=== PATIENT | male | born 1930 | race Caucasian/White ===

== ENCOUNTER 2018-08-03 21:23 | Inpatient (IN) | payer MEDICARE, OTHER ==
[~2018-08-03] VITALS: Ht 172.7 cm; Wt 86.6 kg
[2018-08-03 21:55] LABS: BASO # 0.1 x10^3/uL (0.0-0.2); BASO % 1 % (0-3); EOS # 0.2 x10^3/uL (0.0-0.7); EOS % 3 % (0-3); HEMATOCRIT 33.3 % (39.0-53.0); LYMPH # 3.2 x10^3/uL (1.0-4.8); LYMPH % 42 % (24-48); MEAN CORPUSCULAR HEMOGLOBIN 32 pg (25-35); MEAN CORPUSCULAR HGB CONC 33 g/dL (31-37); MEAN CORPUSCULAR VOLUME 97 fL (79-100); MONO # 0.6 x10^3/uL (0.0-1.1); MONO % 8 % (0-9); NEUT # 3.6 x10^3uL (1.8-7.7); NEUT % 47 % (31-73); PLATELET COUNT 265 x10^3/uL (140-400); RED BLOOD COUNT 3.44 x10^6/uL (4.30-5.70); RED CELL DISTRIBUTION WIDTH 13.7 % (11.5-14.5); WHITE BLOOD COUNT 7.7 x10^3/uL (4.0-11.0)
--- NOTE | 2018-08-03 22:00 | EKG ---
[address] [address] Test Date: 2018-08-03 Test Time: 21:57:56 Pat Name: LUCINDA CONTRERAS Department: Room: Gender: M Soil Engineer: : [id number] Requested By: JONAS CRAVEN Order Number: [id number] Reading MD: Chaz Garza MD Measurements Intervals [place] Rate: 52 P: -35 IA: 176 QRS: 1 QRSD: 80 T: 11 QT: 504 QTc: 471 Interpretive Statements SINUS RHYTHM Electronically Signed On 08-08-2018 8:22:13 EQUIPMENT MANAGER by Chaz Garza MD
[2018-08-03 22:08] LABS: CALCIUM 8.2 mg/dL (8.5-10.1); CREATININE 1.5 mg/dL (0.7-1.3); GFR 44.1; MAGNESIUM 2.4 mg/dL (1.8-2.4); POTASSIUM 3.8 mmol/L (3.5-5.1)
[2018-08-03 22:37] LABS: BILIRUBIN,URINE NEG (NEG); CLARITY,URINE CLEAR; COLOR,URINE YELLOW; GLUCOSE,URINE NEG (NEG)
[2018-08-03 22:38] LABS: BACTERIA,URINE 0 /HPF (0-FEW); NITRITE,URINE NEG (NEG); UROBILINOGEN,URINE 0.2 mg/dL (0.2 mg/dL)
[2018-08-03 22:39] LABS: HYALINE CASTS, URINE MANY /HPF
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
[2018-08-03 23:45] VITALS: BP 192/91
[2018-08-04] MEDS ORDERED: MAG HYDROX/AL HYDROX/SIMETH 30 ML ORAL.SUSP PO PRN
[2018-08-04] MEDS ORDERED: CLON0.1T PO (00:21)
[2018-08-04] MEDS ORDERED: MULT1TAB52 PO (00:21)
[2018-08-04] MEDS ORDERED: QUET50TA5 PO (00:21)
[2018-08-04] MEDS ORDERED: QUET25TA5 PO (00:21)
[2018-08-04] MEDS ORDERED: DIVA125C2 PO (00:21)
[2018-08-04] MEDS ORDERED: CHOL10003 PO (00:21)
[2018-08-04] MEDS ORDERED: BISA5TAB4 PO (00:21)
[2018-08-04] MEDS ORDERED: MEMA1CAP3 PO (00:21)
[2018-08-04] MEDS ORDERED: FURO40TA4 PO (00:21)
[2018-08-04] MEDS ORDERED: METO-239 PO (00:21)
[2018-08-04] MEDS ORDERED: LEVO50TA5 PO (00:21)
[2018-08-04] MEDS ORDERED: MELA3TAB2 PO (00:21)
[2018-08-04] MEDS ORDERED: ASPI81TA50 PO (00:21)
[2018-08-04] MEDS ORDERED: POLY17PO5 PO (00:21)
[2018-08-04] MEDS ORDERED: ACET325T9 PO (00:21)
[2018-08-04] MEDS ORDERED: QUET25TA PO (00:21)
[2018-08-04 00:43] LABS: ALBUMIN 2.9 g/dL (3.4-5.0); DIRECT BILIRUBIN 0.1 mg/dL (0.0-0.2); TOTAL BILIRUBIN 0.1 mg/dL (0.2-1.0); TOTAL PROTEIN 7.1 g/dL (6.4-8.2)
[2018-08-04] MEDS ORDERED: BISACODYL TAB 5 MG TABLET.DR. PO PRN (02:00)
[2018-08-04] MEDS ORDERED: ACETAMINOPHEN 325 MG TABLET PO PRN ×2 (02:00)
[2018-08-04] MEDS: LEVOTHYROXINE 50 MCG TABLET PO SCH (05:39)
[2018-08-04] MEDS ORDERED: NON FORMULARY ITEM (Memantine HCl/Donepezil HCl (Namzaric 28 mg-10 mg Capsule) 1 EACH) PO SCH (09:00)
[2018-08-04] MEDS: MULTIVITAMIN with MINERAL TABLET. PO SCH (10:07)
[2018-08-04] MEDS: POLYETHYLENE GLYCOL 3350 17 GM PACKET. PO SCH (10:07)
[2018-08-04] MEDS: ASPIRIN 81 MG TAB.CHEW PO SCH (10:08)
[2018-08-04] MEDS: QUEtiapine 25 MG TABLET. PO SCH ×2 (10:08→14:32)
[2018-08-04] MEDS: CHOLECALCIFEROL (VITAMIN D3) 1,000 UNIT TABLET PO SCH (10:08)
[2018-08-04] MEDS: METOPROLOL SUCC 24HR ER 25 MG TAB.ER.24H. PO SCH (10:08)
[2018-08-04] MEDS: DIVALPROEX 125 MG CAP.SPRINK PO SCH ×3 (10:08→21:01)
[2018-08-04] MEDS: cloNIDine HCL 0.2 MG TABLET PO SCH ×2 (10:09→21:15)
[2018-08-04] MEDS: FUROSEMIDE 40 MG TABLET PO SCH ×2 (10:09→14:32)
[2018-08-04 15:50] VITALS: BP 143/83
[2018-08-04] MEDS ORDERED: NON FORMULARY ITEM (Quetiapine Fumarate (Seroquel) 25 MG) PO SCH (21:00)
[2018-08-04] MEDS: DONEPEZIL HCL 10 MG TABLET PO SCH (21:01)
[2018-08-04] MEDS: MEMANTINE 10 MG TABLET. PO SCH (21:01)
[2018-08-04] MEDS: QUEtiapine 50 MG TABLET. PO SCH (21:02)
[2018-08-04] MEDS: MELATONIN 3 MG TABLET PO PRN (22:17)
--- NOTE | 2018-08-04 22:44 | PDOC ---
Exam Note: Marquis Note: Please also refer to the separate dictated note~for this date of service dictated separately.~Patient seen individually. Discussed the patient with Nursing staff reviewed the chart.~Reviewed interim history and current functioning. Reviewed vital signs,~Labs/ Radiology~and current medications noted below. Continue current treatment with the changes noted in the dictated addendum note Assessment: Vital Signs: Vital Signs Date Time Temp Pulse Resp B/P (MAP) Pulse Ox O2 Delivery O2 Flow Rate FiO2 08/04/18 21:15 61 186/73 08/04/18 15:50 97.6 18 99 Room Air I&O Intake and Output 08/04/18 07:00 Intake Total 0 ml Balance 0 ml Intake Oral 0 ml Current Medications: Meds: Current Medications Acetaminophen (Tylenol) 650 mg PRN Q6HRS PRN PO PAIN / TEMP; Start 08/04/18 at 00:00; Stop 08/04/18 at 09:05; Status DC Al Hydroxide/Mg Hydroxide (Mylanta Plus Xs) 15 ml PRN AFTMEALHC PRN PO DYSPEPSIA; Start 08/04/18 at 00:00 Magnesium Hydroxide (Milk Of Magnesia) 2,400 mg PRN QHS PRN PO CONSTIPATION; Start 08/04/18 at 00:00 Divalproex Sodium (Depakote Sprinkles) 250 mg TID PO Last administered on 08/04at 21:01; Start 08/04/18 at 09:00 Melatonin 3 mg PRN QHS PRN PO INSOMNIA Last administered on 08/04/18at 22:17; Start 08/04/18 at 02:00 Non-Formulary Medication (Memantine HCl/ Donepezil HCl (Namzaric 28 mg-10 mg Capsule)) 1 each DAILY PO ; Start 08/04/18 at 09:00; Stop 08/04/18 at 14:14; Status DC Quetiapine Fumarate (SEROquel) 25 mg BID@0900,1500 PO Last administered on at 14:32; Start 08/04/18 at 09:45 Non-Formulary Medication (Quetiapine Fumarate (Seroquel)) 25 mg QHS PO ; Start 08/04/18 at 21:00; Status UNV Quetiapine Fumarate (SEROquel) 75 mg QHS PO Last administered on 08/04/18 21: 02; Start 08/04/18 at 21:00 Acetaminophen (Tylenol) 650 mg PRN Q6HRS PRN PO PAIN / TEMP; Start 08/04/18 at 02:00 Bisacodyl (Dulcolax Tab) 10 mg PRN DAILY PRN PO CONSTIPATION; Start 08/04/18 at 02:00 Vitamin D (Vitamin D3) 1,000 unit DAILY PO Last administered on 08/04/18 10: 08; Start 08/04/18 at 09:00 Clonidine HCl (Catapres) 0.5 mg BID PO Last administered on 08/04/18 21:15; Start 08/04/18 at 09:00 Metoprolol Succinate (Toprol Xl) 25 mg DAILY PO Last administered on 10:08; Start 08/04/18 at 09:00 Aspirin (Children'S Aspirin) 81 mg DAILYWBKFT PO Last administered on 10:08; Start 08/04/18 at 08:00 Furosemide (Lasix) 40 mg BID94 PO Last administered on 08/04/18 14:32; Start 08/04/18 at 09:00 Levothyroxine Sodium (Synthroid) 50 mcg DAILY06 PO Last administered on 05:39; Start 08/04/18 at 06:00 Multivitamins/ Calcium (Thera-M Plus) 1 tab DAILY PO Last administered on 08/04 10:07; Start 08/04/18 at 09:00 Polyethylene Glycol (miraLAX) 17 gm DAILY PO Last administered on 08/04/18 10 :07; Start 08/04/18 at 09:00 Memantine (Namenda) 10 mg BID PO Last administered on 08/04/18 21:01; Start 08/04/18 at 21:00 Donepezil HCl (Aricept) 10 mg HS PO Last administered on 08/04/18 21:01; Start 08/04/18 at 21:00 Active Scripts Active Reported Vitamin D3 (Cholecalciferol (Vitamin D3)) 1,000 Unit Tablet 1,000 Unit PO DAILY Quetiapine Fumarate 25 Mg Tablet 25 Mg PO BID Seroquel (Quetiapine Fumarate) 50 Mg Tablet 50 Mg PO QHS Seroquel (Quetiapine Fumarate) 25 Mg Tablet 25 Mg PO QHS Namzaric 28 mg-10 mg Capsule (Memantine HCl/Donepezil HCl) 1 Each Cap.spr.24 1 Each PO DAILY Multivitamins (Multivitamin) 1 Each Tablet 1 Each PO DAILY Metoprolol Succinate ( Xl ) (Metoprolol Succinate) 25 Mg Tab.er.24h 25 Mg PO DAILY Melatonin 3 Mg Tablet 3 Mg PO PRN QHS PRN Levothyroxine Sodium 50 Mcg Tablet 50 Mcg PO DAILYAC Miralax (Polyethylene Glycol 3350) 17 Gm Powd.pack 17 Gm PO DAILY Furosemide 40 Mg Tablet 40 Mg PO BID Depakote Sprinkle (Divalproex Sodium) 125 Mg Cap.sprink 250 Mg PO TID Clonidine Hcl 0.1 Mg Tablet 0.5 Mg PO BID Bisacodyl 5 Mg Tablet.dr 10 Mg PO DAILY PRN Aspir-Low (Aspirin) 81 Mg Tablet.dr 81 Mg PO DAILY Tylenol (Acetaminophen) 325 Mg Tablet 650 Mg PO PRN Q6HRS PRN I have reviewed the current psychotropics carefully including drug interactions. Risk benefit ratio favors no change other than as noted in my dictated progress note. Diagnosis: Problems: (1) Encounter for medical screening examination (2) Anxiety disorder (3) Dementia, vascular, with depression (4) Dementia, vascular, with delusions (5) Dementia in Alzheimer's disease with depression (6) Dementia in Alzheimer's disease with delusions (7) Impulse control disorder ELSY SOTO MD Aug 04, 2018 22:44
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
[2018-08-05 06:23] VITALS: BP 156/81
[2018-08-05] MEDS: LEVOTHYROXINE 50 MCG TABLET PO SCH (06:23)
[2018-08-05] MEDS: ASPIRIN 81 MG TAB.CHEW PO SCH (08:55)
[2018-08-05] MEDS: CHOLECALCIFEROL (VITAMIN D3) 1,000 UNIT TABLET PO SCH (08:55)
[2018-08-05] MEDS: MULTIVITAMIN with MINERAL TABLET. PO SCH (08:55)
[2018-08-05] MEDS: QUEtiapine 25 MG TABLET. PO SCH ×2 (08:55→13:53)
[2018-08-05] MEDS: DIVALPROEX 125 MG CAP.SPRINK PO SCH ×3 (08:56→19:10)
[2018-08-05] MEDS: MEMANTINE 10 MG TABLET. PO SCH ×2 (08:56→19:08)
[2018-08-05] MEDS: FUROSEMIDE 40 MG TABLET PO SCH ×2 (08:56→15:50)
[2018-08-05] MEDS: POLYETHYLENE GLYCOL 3350 17 GM PACKET. PO SCH (08:56)
[2018-08-05 09:03] VITALS: BP 182/82
[2018-08-05] MEDS: METOPROLOL SUCC 24HR ER 25 MG TAB.ER.24H. PO SCH (09:04)
[2018-08-05] MEDS: cloNIDine HCL 0.2 MG TABLET PO SCH ×2 (09:05→19:10)
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
[2018-08-05 15:59] VITALS: BP 183/75
[2018-08-05 18:11] LABS: THYROXINE 5.8 ug/dL (4.5-12.0)
[2018-08-05] MEDS: QUEtiapine 50 MG TABLET. PO SCH (19:08)
[2018-08-05] MEDS: DONEPEZIL HCL 10 MG TABLET PO SCH (19:08)
[2018-08-05] MEDS: MIRTAZAPINE 7.5 MG TABLET. PO SCH (19:49)
[2018-08-05] MEDS: MELATONIN 3 MG TABLET PO PRN (20:09)
--- NOTE | 2018-08-05 22:33 | PDOC ---
Exam Note: Marquis Note: Please also refer to the separate dictated note~for this date of service dictated separately.~Patient seen individually. Discussed the patient with Nursing staff reviewed the chart.~Reviewed interim history and current functioning. Reviewed vital signs,~Labs/ Radiology~and current medications noted below. Continue current treatment with the changes noted in the dictated addendum note Assessment: Vital Signs: Vital Signs Date Time Temp Pulse Resp B/P (MAP) Pulse Ox O2 Delivery O2 Flow Rate FiO2 08/05/18 19:10 54 183/75 08/05/18 15:59 97.1 16 99 Room Air I&O Intake and Output 08/05/18 07:00 Intake Total 560 ml Balance 560 ml Intake Oral 560 ml # Voids 1 Labs: Laboratory Tests Test 08/05/18 09:17 Free Thyroxine 0.87 ng/dL (0.76-1.46) Thyroxine (T4) 5.8 ug/dL (4.5-12.0) Total Triiodothyronine (TT3) 72 ng/dL (71-180) Current Medications: Meds: Current Medications Acetaminophen (Tylenol) 650 mg PRN Q6HRS PRN PO PAIN / TEMP; Start 08/04/18 at 00:00; Stop 08/04/18 at 09:05; Status DC Al Hydroxide/Mg Hydroxide (Mylanta Plus Xs) 15 ml PRN AFTMEALHC PRN PO DYSPEPSIA; Start 08/04/18 at 00:00 Magnesium Hydroxide (Milk Of Magnesia) 2,400 mg PRN QHS PRN PO CONSTIPATION; Start 08/04/18 at 00:00 Divalproex Sodium (Depakote Sprinkles) 250 mg TID PO Last administered on 08/05at 19:10; Start 08/04/18 at 09:00 Melatonin 3 mg PRN QHS PRN PO INSOMNIA Last administered on 08/05/18at 20:09; Start 08/04/18 at 02:00 Non-Formulary Medication (Memantine HCl/ Donepezil HCl (Namzaric 28 mg-10 mg Capsule)) 1 each DAILY PO ; Start 08/04/18 at 09:00; Stop 08/04/18 at 14:14; Status DC Quetiapine Fumarate (SEROquel) 25 mg BID@0900,1500 PO Last administered on 13:53; Start 08/04/18 at 09:45 Non-Formulary Medication (Quetiapine Fumarate (Seroquel)) 25 mg QHS PO ; Start 08/04/18 at 21:00; Status UNV Quetiapine Fumarate (SEROquel) 75 mg QHS PO Last administered on 08/05/18 19: 08; Start 08/04/18 at 21:00 Acetaminophen (Tylenol) 650 mg PRN Q6HRS PRN PO PAIN / TEMP; Start 08/04/18 at 02:00 Bisacodyl (Dulcolax Tab) 10 mg PRN DAILY PRN PO CONSTIPATION; Start 08/04/18 at 02:00 Vitamin D (Vitamin D3) 1,000 unit DAILY PO Last administered on 08/05/18 08: 55; Start 08/04/18 at 09:00 Clonidine HCl (Catapres) 0.5 mg BID PO Last administered on 08/05/18 19:10; Start 08/04/18 at 09:00 Metoprolol Succinate (Toprol Xl) 25 mg DAILY PO Last administered on 09:04; Start 08/04/18 at 09:00 Aspirin (Children'S Aspirin) 81 mg DAILYWBKFT PO Last administered on 08:55; Start 08/04/18 at 08:00 Furosemide (Lasix) 40 mg BID94 PO Last administered on 08/05/18 15:50; Start 08/04/18 at 09:00 Levothyroxine Sodium (Synthroid) 50 mcg DAILY06 PO Last administered on 06:23; Start 08/04/18 at 06:00 Multivitamins/ Calcium (Thera-M Plus) 1 tab DAILY PO Last administered on 08/05 08:55; Start 08/04/18 at 09:00 Polyethylene Glycol (miraLAX) 17 gm DAILY PO Last administered on 08/05/18 08 :56; Start 08/04/18 at 09:00 Memantine (Namenda) 10 mg BID PO Last administered on 08/05/18 19:08; Start 08/04/18 at 21:00 Donepezil HCl (Aricept) 10 mg HS PO Last administered on 11/30/18at 19:08; Start 08/04/18 at 21:00 Sertraline HCl (Zoloft) 25 mg DAILY PO ; Start 08/06/18 at 09:00 Donepezil HCl (Aricept) 10 mg DAILY PO ; Start 08/06/18 at 09:00 Mirtazapine (Remeron) 7.5 mg QHS PO Last administered on 08/05/18at 19:49; Start 08/05/18 at 21:00 Active Scripts Active Reported Vitamin D3 (Cholecalciferol (Vitamin D3)) 1,000 Unit Tablet 1,000 Unit PO DAILY Quetiapine Fumarate 25 Mg Tablet 25 Mg PO BID Seroquel (Quetiapine Fumarate) 50 Mg Tablet 50 Mg PO QHS Seroquel (Quetiapine Fumarate) 25 Mg Tablet 25 Mg PO QHS Namzaric 28 mg-10 mg Capsule (Memantine HCl/Donepezil HCl) 1 Each Cap.spr.24 1 Each PO DAILY Multivitamins (Multivitamin) 1 Each Tablet 1 Each PO DAILY Metoprolol Succinate ( Xl ) (Metoprolol Succinate) 25 Mg Tab.er.24h 25 Mg PO DAILY Melatonin 3 Mg Tablet 3 Mg PO PRN QHS PRN Levothyroxine Sodium 50 Mcg Tablet 50 Mcg PO DAILYAC Miralax (Polyethylene Glycol 3350) 17 Gm Powd.pack 17 Gm PO DAILY Furosemide 40 Mg Tablet 40 Mg PO BID Depakote Sprinkle (Divalproex Sodium) 125 Mg Cap.sprink 250 Mg PO TID Clonidine Hcl 0.1 Mg Tablet 0.5 Mg PO BID Bisacodyl 5 Mg Tablet. 10 Mg PO DAILY PRN Aspir-Low (Aspirin) 81 Mg Tablet. 81 Mg PO DAILY Tylenol (Acetaminophen) 325 Mg Tablet 650 Mg PO PRN Q6HRS PRN I have reviewed the current psychotropics carefully including drug interactions. Risk benefit ratio favors no change other than as noted in my dictated progress note. Diagnosis: Problems: (1) Encounter for medical screening examination (2) Anxiety disorder (3) Dementia, vascular, with depression (4) Dementia, vascular, with delusions (5) Dementia in Alzheimer's disease with depression (6) Dementia in Alzheimer's disease with delusions (7) Impulse control disorder ELSY SOTO MD Aug 05, 2018 22:33
[2018-08-06 02:08] LABS: HEMOGLOBIN A1C 5.6 % (4.8-5.6)
[2018-08-06 05:59] VITALS: BP 130/92
[2018-08-06] MEDS: LEVOTHYROXINE 50 MCG TABLET PO SCH (06:00)
[2018-08-06] MEDS: ASPIRIN 81 MG TAB.CHEW PO SCH (08:30)
[2018-08-06] MEDS: DONEPEZIL HCL 10 MG TABLET PO SCH (08:32)
[2018-08-06] MEDS: DIVALPROEX 125 MG CAP.SPRINK PO SCH ×3 (08:33→19:03)
[2018-08-06] MEDS: cloNIDine HCL 0.2 MG TABLET PO SCH ×2 (08:33→19:03)
[2018-08-06] MEDS: POLYETHYLENE GLYCOL 3350 17 GM PACKET. PO SCH (08:33)
[2018-08-06] MEDS: MULTIVITAMIN with MINERAL TABLET. PO SCH (08:33)
[2018-08-06] MEDS: QUEtiapine 25 MG TABLET. PO SCH ×2 (08:33→14:59)
[2018-08-06] MEDS: MEMANTINE 10 MG TABLET. PO SCH ×2 (08:33→19:02)
[2018-08-06] MEDS: FUROSEMIDE 40 MG TABLET PO SCH ×2 (08:33→14:59)
[2018-08-06] MEDS: CHOLECALCIFEROL (VITAMIN D3) 1,000 UNIT TABLET PO SCH (08:34)
[2018-08-06] MEDS: SERTRALINE 25 MG TABLET. PO SCH (08:34)
[2018-08-06] MEDS: METOPROLOL SUCC 24HR ER 25 MG TAB.ER.24H. PO SCH (08:34)
[2018-08-06 09:22] LABS: VAL ACID 53 mcg/mL (50-100)
[2018-08-06 15:51] VITALS: BP 139/78
[2018-08-06] MEDS: MIRTAZAPINE 7.5 MG TABLET. PO SCH (19:02)
[2018-08-06] MEDS: QUEtiapine 50 MG TABLET. PO SCH (19:02)
[2018-08-06] MEDS: traZODone 50 MG TABLET. PO SCH (19:08)
--- NOTE | 2018-08-06 21:44 | PDOC ---
Exam Note: Marquis Note: Please also refer to the separate dictated note~for this date of service dictated separately.~Patient seen individually. Discussed the patient with Nursing staff reviewed the chart.~Reviewed interim history and current functioning. Reviewed vital signs,~Labs/ Radiology~and current medications noted below. Continue current treatment with the changes noted in the dictated addendum note Assessment: Vital Signs: Vital Signs Date Time Temp Pulse Resp B/P (MAP) Pulse Ox O2 Delivery O2 Flow Rate FiO2 08/06/18 19:03 52 139/78 08/06/18 15:51 97.4 18 96 Room Air I&O Intake and Output 08/06/18 07:00 Intake Total 1080 ml Balance 1080 ml Intake Oral 1080 ml # Voids 2 Labs: Laboratory Tests Test 08/06/18 08:44 Valproic Acid Level 53 mcg/mL (50-100) Valproic Acid Last Dose Date 08/05/2018 Valproic Acid Last Dose Time 2100 Current Medications: Meds: Current Medications Acetaminophen (Tylenol) 650 mg PRN Q6HRS PRN PO PAIN / TEMP; Start 08/04/18 at 00:00; Stop 08/04/18 at 09:05; Status DC Al Hydroxide/Mg Hydroxide (Mylanta Plus Xs) 15 ml PRN AFTMEALHC PRN PO DYSPEPSIA; Start 08/04/18 at 00:00 Magnesium Hydroxide (Milk Of Magnesia) 2,400 mg PRN QHS PRN PO CONSTIPATION; Start 08/04/18 at 00:00 Divalproex Sodium (Depakote Sprinkles) 250 mg TID PO Last administered on at 19:03; Start 08/04/18 at 09:00 Melatonin 3 mg PRN QHS PRN PO INSOMNIA Last administered on 08/05/18at 20:09; Start 08/04/18 at 02:00 Non-Formulary Medication (Memantine HCl/ Donepezil HCl (Namzaric 28 mg-10 mg Capsule)) 1 each DAILY PO ; Start 08/04/18 at 09:00; Stop 08/04/18 at 14:14; Status DC Quetiapine Fumarate (SEROquel) 25 mg BID@0900,1500 PO Last administered on 08/06at 14:59; Start 08/04/18 at 09:45 Non-Formulary Medication (Quetiapine Fumarate (Seroquel)) 25 mg QHS PO ; Start 08/04/18 at 21:00; Status UNV Quetiapine Fumarate (SEROquel) 75 mg QHS PO Last administered on 08/06/18 19: 02; Start 08/04/18 at 21:00 Acetaminophen (Tylenol) 650 mg PRN Q6HRS PRN PO PAIN / TEMP; Start 08/04/18 at 02:00 Bisacodyl (Dulcolax Tab) 10 mg PRN DAILY PRN PO CONSTIPATION; Start 08/04/18 at 02:00 Vitamin D (Vitamin D3) 1,000 unit DAILY PO Last administered on 08/06/18 08:34 ; Start 08/04/18 at 09:00 Clonidine HCl (Catapres) 0.5 mg BID PO Last administered on 08/06/18 19:03; Start 08/04/18 at 09:00 Metoprolol Succinate (Toprol Xl) 25 mg DAILY PO Last administered on 08/06/18 08:34; Start 08/04/18 at 09:00 Aspirin (Children'S Aspirin) 81 mg DAILYWBKFT PO Last administered on 08:30; Start 08/04/18 at 08:00 Furosemide (Lasix) 40 mg BID94 PO Last administered on 08/06/18at 14:59; Start 08/04/18 at 09:00 Levothyroxine Sodium (Synthroid) 50 mcg DAILY06 PO Last administered on 06:00; Start 08/04/18 at 06:00 Multivitamins/ Calcium (Thera-M Plus) 1 tab DAILY PO Last administered on 08:33; Start 08/04/18 at 09:00 Polyethylene Glycol (miraLAX) 17 gm DAILY PO Last administered on 08/06/18 08: 33; Start 08/04/18 at 09:00 Memantine (Namenda) 10 mg BID PO Last administered on 08/06/18 19:02; Start 08/04/18 at 21:00 Donepezil HCl (Aricept) 10 mg HS PO Last administered on 08/05/18 19:08; Start 08/04/18 at 21:00; Stop 08/06/18 at 18:50; Status DC Sertraline HCl (Zoloft) 25 mg DAILY PO Last administered on 08/06/18at 08:34; Start 08/06/18 at 09:00 Donepezil HCl (Aricept) 10 mg DAILY PO Last administered on 08/06/18at 08:32; Start 08/06/18 at 09:00 Mirtazapine (Remeron) 7.5 mg QHS PO Last administered on 08/06/18at 19:02; Start 08/05/18 at 21:00 Olanzapine (ZyPREXA ZYDIS) 2.5 mg PRN Q2HR PRN PO PSYCHOSIS Last administered on 08/06/18at 19:09; Start 08/06/18 at 06:45 Trazodone HCl (Desyrel) 50 mg QHS PO Last administered on 08/06/18at 19:08; Start 08/06/18 at 21:00 Trazodone HCl (Desyrel) 50 mg PRN QHS PRN PO INSOMNIA; Start 08/06/18 at 19:00 Active Scripts Active Reported Vitamin D3 (Cholecalciferol (Vitamin D3)) 1,000 Unit Tablet 1,000 Unit PO DAILY Quetiapine Fumarate 25 Mg Tablet 25 Mg PO BID Seroquel (Quetiapine Fumarate) 50 Mg Tablet 50 Mg PO QHS Seroquel (Quetiapine Fumarate) 25 Mg Tablet 25 Mg PO QHS Namzaric 28 mg-10 mg Capsule (Memantine HCl/Donepezil HCl) 1 Each Cap.spr.24 1 Each PO DAILY Multivitamins (Multivitamin) 1 Each Tablet 1 Each PO DAILY Metoprolol Succinate ( Xl ) (Metoprolol Succinate) 25 Mg Tab.er.24h 25 Mg PO DAILY Melatonin 3 Mg Tablet 3 Mg PO PRN QHS PRN Levothyroxine Sodium 50 Mcg Tablet 50 Mcg PO DAILYAC Miralax (Polyethylene Glycol 3350) 17 Gm Powd.pack 17 Gm PO DAILY Furosemide 40 Mg Tablet 40 Mg PO BID Depakote Sprinkle (Divalproex Sodium) 125 Mg Cap.sprink 250 Mg PO TID Clonidine Hcl 0.1 Mg Tablet 0.5 Mg PO BID Bisacodyl 5 Mg Tablet.dr 10 Mg PO DAILY PRN Aspir-Low (Aspirin) 81 Mg Tablet.dr 81 Mg PO DAILY Tylenol (Acetaminophen) 325 Mg Tablet 650 Mg PO PRN Q6HRS PRN I have reviewed the current psychotropics carefully including drug interactions. Risk benefit ratio favors no change other than as noted in my dictated progress note. Diagnosis: Problems: (1) Encounter for medical screening examination (2) Anxiety disorder (3) Dementia, vascular, with depression (4) Dementia, vascular, with delusions (5) Dementia in Alzheimer's disease with depression (6) Dementia in Alzheimer's disease with delusions (7) Impulse control disorder ELSY SOTO MD Aug 06, 2018 21:44
[2018-08-07] MEDS: MELATONIN 3 MG TABLET PO PRN (01:52)
[2018-08-07] MEDS: traZODone 50 MG TABLET. PO PRN (01:52)
[2018-08-07] MEDS: LEVOTHYROXINE 50 MCG TABLET PO SCH (05:13)
[2018-08-07 05:50] VITALS: BP 159/70
[2018-08-07] MEDS: ASPIRIN 81 MG TAB.CHEW PO SCH (08:36)
[2018-08-07] MEDS: DONEPEZIL HCL 10 MG TABLET PO SCH (08:36)
[2018-08-07] MEDS: cloNIDine HCL 0.2 MG TABLET PO SCH ×2 (08:38→19:47)
[2018-08-07] MEDS: QUEtiapine 25 MG TABLET. PO SCH ×2 (08:38→15:04)
[2018-08-07] MEDS: DIVALPROEX 125 MG CAP.SPRINK PO SCH ×3 (08:38→19:48)
[2018-08-07] MEDS: FUROSEMIDE 40 MG TABLET PO SCH ×2 (08:38→15:03)
[2018-08-07] MEDS: POLYETHYLENE GLYCOL 3350 17 GM PACKET. PO SCH (08:38)
[2018-08-07] MEDS: MEMANTINE 10 MG TABLET. PO SCH ×2 (08:38→19:47)
[2018-08-07] MEDS: METOPROLOL SUCC 24HR ER 25 MG TAB.ER.24H. PO SCH (08:39)
[2018-08-07] MEDS: CHOLECALCIFEROL (VITAMIN D3) 1,000 UNIT TABLET PO SCH (08:39)
[2018-08-07] MEDS: MULTIVITAMIN with MINERAL TABLET. PO SCH (08:39)
[2018-08-07] MEDS: SERTRALINE 25 MG TABLET. PO SCH (08:40)
[2018-08-07 15:47] VITALS: BP 138/79
[2018-08-07] MEDS: traZODone 50 MG TABLET. PO SCH (19:48)
[2018-08-07] MEDS: QUEtiapine 50 MG TABLET. PO SCH (19:49)
[2018-08-07] MEDS: MIRTAZAPINE 15 MG TABLET PO SCH (19:50)
--- NOTE | 2018-08-07 22:04 | PN ---
DATE: 08/05/2018 This is a late entry for date of service 08/05/2018 and covers elements not covered in my initial note. SUBJECTIVE: I met with the patient in the evening. The patient slept 4-3/4 hours previous evening. He is oriented just to himself. A little more cooperative, but towards the evening, he was looking for his and getting more agitated. REVIEW OF SYSTEMS: No CV, , pulmonary, eye, ENT system symptoms on review. Reliability poor. MENTAL STATUS EXAM: Oriented to himself. Insight, judgment, recent and remote memory, attention, concentration, fund of knowledge poor, consistent with his diagnosis. IMPRESSION: Major neurocognitive disorder, Alzheimer, vascular with delusion, depression, behavioral disturbance; anxiety disorder, unspecified; impulse control disorder, unspecified. PLAN: Maintain Aricept 10 mg a day, Namenda 10 mg twice a day, Depakote Sprinkles 250 mg 3 times a day, Seroquel 25 mg b.i.d. and 75 mg at bedtime, melatonin p.r.n. Start Zoloft 25 mg a day, Remeron 7.5 mg p.o. at bedtime. Make further adjustments as clinically indicated. MAN Jean SOTO MD DR: GABRIEL/joe JOB#: [id number] / [id number]
--- NOTE | 2018-08-07 22:41 | PN ---
DATE: 08/06/2018 This is a late entry for 08/06/2018 covers elements not covered in my initial note. SUBJECTIVE: I met with the patient in the evening. The patient slept 4-1/2 hours previous night. In the morning, the patient was cursing, had to be placed in the [place] [facility], extremely agitated, disruptive, psychotic, confused. He wanted another female patient to sit in his lap and when this did not happen, he was extremely agitated, aggressive. REVIEW OF SYSTEMS: No CV, , pulmonary, eye, ENT system symptoms on review. Reliability poor. MENTAL STATUS EXAM: Oriented to himself. Insight, judgment, recent and remote memory, attention, concentration, fund of knowledge poor, consistent with his diagnosis. IMPRESSION: Major neurocognitive disorder, Alzheimer, vascular with delusion, depression, behavioral disturbance; anxiety disorder, unspecified; impulse control disorder, unspecified. PLAN: Change Aricept to 10 mg a day. Maintain Remeron 7.5 mg at bedtime, Zyprexa p.r.n., Namenda 10 b.i.d., Seroquel 25 mg b.i.d., 75 at bedtime, Depakote Sprinkles 250 t.i.d., melatonin 3 mg at bedtime p.r.n. Start trazodone 50 mg at bedtime. January repeat x 1 p.r.n. insomnia. MAN Jean SOTO MD DR: GABRIEL/joe JOB#: [id number] / [id number]
[2018-08-08] MEDS: LEVOTHYROXINE 50 MCG TABLET PO SCH (05:26)
[2018-08-08 05:50] VITALS: BP 179/74
[2018-08-08] MEDS: cloNIDine HCL 0.2 MG TABLET PO SCH ×2 (08:08→19:24)
[2018-08-08] MEDS: ASPIRIN 81 MG TAB.CHEW PO SCH (08:08)
[2018-08-08] MEDS: DONEPEZIL HCL 10 MG TABLET PO SCH (08:08)
[2018-08-08] MEDS: QUEtiapine 25 MG TABLET. PO SCH ×2 (08:09→15:04)
[2018-08-08] MEDS: DIVALPROEX 125 MG CAP.SPRINK PO SCH ×3 (08:09→19:23)
[2018-08-08] MEDS: FUROSEMIDE 40 MG TABLET PO SCH ×2 (08:09→15:04)
[2018-08-08] MEDS: MULTIVITAMIN with MINERAL TABLET. PO SCH (08:09)
[2018-08-08] MEDS: POLYETHYLENE GLYCOL 3350 17 GM PACKET. PO SCH (08:09)
[2018-08-08] MEDS: MEMANTINE 10 MG TABLET. PO SCH ×2 (08:09→19:25)
[2018-08-08] MEDS: CHOLECALCIFEROL (VITAMIN D3) 1,000 UNIT TABLET PO SCH (08:10)
[2018-08-08] MEDS: METOPROLOL SUCC 24HR ER 25 MG TAB.ER.24H. PO SCH (08:10)
[2018-08-08] MEDS: SERTRALINE 50 MG TABLET. PO SCH (08:11)
--- NOTE | 2018-08-08 10:08 | PDOC ---
Exam Note: Marquis Note: Late entry for DOS 08/07/2018. Please also refer to the separate dictated note~ for this date of service dictated separately.~Patient seen individually. Discussed the patient with Nursing staff reviewed the chart.~Reviewed interim history and current functioning. Reviewed vital signs,~Labs/ Radiology~and current medications noted below. Continue current treatment with the changes noted in the dictated addendum note Assessment: Vital Signs: VS - Last 72 Hours, by Label Date Time Temp Pulse Resp B/P (MAP) Pulse Ox O2 Delivery O2 Flow Rate FiO2 08/08/18 08:10 66 179/74 08/08/18 08:08 62 109/75 08/08/18 05:50 96.2 66 20 179/74 (109) 99 08/07/18 19:47 62 138/79 08/07/18 15:47 97.7 62 18 138/79 (98) 97 08/07/18 08:39 67 159/70 08/07/18 08:38 67 159/70 08/07/18 05:50 97.8 67 18 159/70 (99) 98 08/06/18 19:03 52 139/78 08/06/18 15:51 97.4 52 18 139/78 (98) 96 Room Air 08/06/18 08:34 68 130/92 08/06/18 08:33 68 130/92 08/06/18 05:59 97.2 68 18 130/92 (105) 98 08/05/18 19:10 54 183/75 08/05/18 15:59 97.1 54 16 183/75 (111) 99 Room Air Vital Signs Date Time Temp Pulse Resp B/P (MAP) Pulse Ox O2 Delivery O2 Flow Rate FiO2 08/08/18 08:10 66 179/74 08/08/18 05:50 96.2 20 99 08/06/18 15:51 Room Air I&O Intake and Output 08/08/18 07:00 Intake Total 1200 ml Balance 1200 ml Intake Oral 1200 ml Current Medications: Meds: Current Medications Acetaminophen (Tylenol) 650 mg PRN Q6HRS PRN PO PAIN / TEMP; Start 08/04/18 at 00:00; Stop 08/04/18 at 09:05; Status DC Al Hydroxide/Mg Hydroxide (Mylanta Plus Xs) 15 ml PRN AFTMEALHC PRN PO DYSPEPSIA; Start 08/04/18 at 00:00 Magnesium Hydroxide (Milk Of Magnesia) 2,400 mg PRN QHS PRN PO CONSTIPATION; Start 08/04/18 at 00:00 Divalproex Sodium (Depakote Sprinkles) 250 mg TID PO Last administered on 08:09; Start 08/04/18 at 09:00 Melatonin 3 mg PRN QHS PRN PO INSOMNIA Last administered on 08/07/18at 01:52; Start 08/04/18 at 02:00 Non-Formulary Medication (Memantine HCl/ Donepezil HCl (Namzaric 28 mg-10 mg Capsule)) 1 each DAILY PO ; Start 08/04/18 at 09:00; Stop 08/04/18 at 14:14; Status DC Quetiapine Fumarate (SEROquel) 25 mg BID@0900,1500 PO Last administered on 08/08 08:09; Start 08/04/18 at 09:45 Non-Formulary Medication (Quetiapine Fumarate (Seroquel)) 25 mg QHS PO ; Start 08/04/18 at 21:00; Status UNV Quetiapine Fumarate (SEROquel) 75 mg QHS PO Last administered on 08/07/18 19: 49; Start 08/04/18 at 21:00 Acetaminophen (Tylenol) 650 mg PRN Q6HRS PRN PO PAIN / TEMP; Start 08/04/18 at 02:00 Bisacodyl (Dulcolax Tab) 10 mg PRN DAILY PRN PO CONSTIPATION; Start 08/04/18 at 02:00 Vitamin D (Vitamin D3) 1,000 unit DAILY PO Last administered on 08/08/18 08:10 ; Start 08/04/18 at 09:00 Clonidine HCl (Catapres) 0.5 mg BID PO Last administered on 08/08/18 08:08; Start 08/04/18 at 09:00 Metoprolol Succinate (Toprol Xl) 25 mg DAILY PO Last administered on 08/08/18 08:10; Start 08/04/18 at 09:00 Aspirin (Children'S Aspirin) 81 mg DAILYWBKFT PO Last administered on 08:08; Start 08/04/18 at 08:00 Furosemide (Lasix) 40 mg BID94 PO Last administered on 08/08/18 08:09; Start 08/04/18 at 09:00 Levothyroxine Sodium (Synthroid) 50 mcg DAILY06 PO Last administered on 05:26; Start 08/04/18 at 06:00 Multivitamins/ Calcium (Thera-M Plus) 1 tab DAILY PO Last administered on 08:09; Start 08/04/18 at 09:00 Polyethylene Glycol (miraLAX) 17 gm DAILY PO Last administered on 08/08/18 08: 09; Start 08/04/18 at 09:00 Memantine (Namenda) 10 mg BID PO Last administered on 08/08/18 08:09; Start 08/04/18 at 21:00 Donepezil HCl (Aricept) 10 mg HS PO Last administered on 08/05/18at 19:08; Start 08/04/18 at 21:00; Stop 08/06/18 at 18:50; Status DC Sertraline HCl (Zoloft) 25 mg DAILY PO Last administered on 08/07/18 08:40; Start 08/06/18 at 09:00; Stop 08/07/18 at 18:41; Status DC Donepezil HCl (Aricept) 10 mg DAILY PO Last administered on 08/08/18 08:08; Start 08/06/18 at 09:00 Mirtazapine (Remeron) 7.5 mg QHS PO Last administered on 08/06/18 19:02; Start 08/05/18 at 21:00; Stop 08/07/18 at 18:41; Status DC Olanzapine (ZyPREXA ZYDIS) 2.5 mg PRN Q2HR PRN PO PSYCHOSIS Last administered on 08/06/18 19:09; Start 08/06/18 at 06:45 Trazodone HCl (Desyrel) 50 mg QHS PO Last administered on 08/07/18 19:48; Start 08/06/18 at 21:00 Trazodone HCl (Desyrel) 50 mg PRN QHS PRN PO INSOMNIA Last administered on 08/07 01:52; Start 08/06/18 at 19:00 Mirtazapine (Remeron) 15 mg QHS PO Last administered on 08/07/18at 19:50; Start 08/07/18 at 21:00 Sertraline HCl (Zoloft) 50 mg DAILY PO Last administered on 08/08/18at 08:11; Start 08/08/18 at 09:00 Active Scripts Active Reported Vitamin D3 (Cholecalciferol (Vitamin D3)) 1,000 Unit Tablet 1,000 Unit PO DAILY Quetiapine Fumarate 25 Mg Tablet 25 Mg PO BID Seroquel (Quetiapine Fumarate) 50 Mg Tablet 50 Mg PO QHS Seroquel (Quetiapine Fumarate) 25 Mg Tablet 25 Mg PO QHS Namzaric 28 mg-10 mg Capsule (Memantine HCl/Donepezil HCl) 1 Each Cap.spr.24 1 Each PO DAILY Multivitamins (Multivitamin) 1 Each Tablet 1 Each PO DAILY Metoprolol Succinate ( Xl ) (Metoprolol Succinate) 25 Mg Tab.er.24h 25 Mg PO DAILY Melatonin 3 Mg Tablet 3 Mg PO PRN QHS PRN Levothyroxine Sodium 50 Mcg Tablet 50 Mcg PO DAILYAC Miralax (Polyethylene Glycol 3350) 17 Gm Powd.pack 17 Gm PO DAILY Furosemide 40 Mg Tablet 40 Mg PO BID Depakote Sprinkle (Divalproex Sodium) 125 Mg Cap.sprink 250 Mg PO TID Clonidine Hcl 0.1 Mg Tablet 0.5 Mg PO BID Bisacodyl 5 Mg Tablet.dr 10 Mg PO DAILY PRN Aspir-Low (Aspirin) 81 Mg Tablet.dr 81 Mg PO DAILY Tylenol (Acetaminophen) 325 Mg Tablet 650 Mg PO PRN Q6HRS PRN I have reviewed the current psychotropics carefully including drug interactions. Risk benefit ratio favors no change other than as noted in my dictated progress note. Diagnosis: Problems: (1) Encounter for medical screening examination (2) Anxiety disorder (3) Dementia, vascular, with depression (4) Dementia, vascular, with delusions (5) Dementia in Alzheimer's disease with depression (6) Dementia in Alzheimer's disease with delusions (7) Impulse control disorder ELSY SOTO MD Aug 08, 2018 10:08
[2018-08-08 16:09] VITALS: BP 175/83
[2018-08-08] MEDS: MIRTAZAPINE 15 MG TABLET PO SCH (19:25)
[2018-08-08] MEDS: traZODone 50 MG TABLET. PO SCH (19:25)
[2018-08-08] MEDS: QUEtiapine 50 MG TABLET. PO SCH (19:26)
[2018-08-08] MEDS: MELATONIN 3 MG TABLET PO PRN (19:38)
[2018-08-08] MEDS: traZODone 50 MG TABLET. PO PRN (20:54)
--- NOTE | 2018-08-08 21:36 | PN ---
DATE: 08/07/2018 PSYCHIATRIC PROGRESS NOTE This late entry 08/07/2018, covers elements not covered in my initial note. SUBJECTIVE: I met with the patient in the evening. The patient slept 5-1/2 hours previous night. Previous evening, he was spitting out his medications, agitated, received trazodone and melatonin at 1:30 a.m. He is confused, believes his parents were here and "dad will take care of." REVIEW OF SYSTEMS: No CV, , pulmonary, eye, ENT system symptoms on review. Reliability poor. MENTAL STATUS EXAM: Oriented to himself. Insight, judgment, recent and remote memory, attention, concentration, fund of knowledge poor, consistent with his diagnosis mentioned in my initial note. IMPRESSION: Major neurocognitive disorder, Alzheimer, vascular with delusion, depression, behavioral disturbance; anxiety disorder, unspecified; impulse control disorder, unspecified. PLAN: Increase Zoloft from 25 to 50 mg a day, Remeron from 7.5 mg to 15 mg at bedtime. Rest unchanged from initial note. MAN Jean SOTO MD DR: GABRIEL/joe JOB#: [id number] / [id number]
--- NOTE | 2018-08-08 22:43 | PDOC ---
Exam Note: Marquis Note: Please also refer to the separate dictated note~for this date of service dictated separately.~Patient seen individually. Discussed the patient with Nursing staff reviewed the chart.~Reviewed interim history and current functioning. Reviewed vital signs,~Labs/ Radiology~and current medications noted below. Continue current treatment with the changes noted in the dictated addendum note Assessment: Vital Signs: Vital Signs Date Time Temp Pulse Resp B/P (MAP) Pulse Ox O2 Delivery O2 Flow Rate FiO2 08/08/18 19:24 82 175/83 08/08/18 16:09 97.3 18 98 08/06/18 15:51 Room Air I&O Intake and Output 08/08/18 07:00 Intake Total 1200 ml Balance 1200 ml Intake Oral 1200 ml Current Medications: Meds: Current Medications Acetaminophen (Tylenol) 650 mg PRN Q6HRS PRN PO PAIN / TEMP; Start 08/04/18 at 00:00; Stop 08/04/18 at 09:05; Status DC Al Hydroxide/Mg Hydroxide (Mylanta Plus Xs) 15 ml PRN AFTMEALHC PRN PO DYSPEPSIA; Start 08/04/18 at 00:00 Magnesium Hydroxide (Milk Of Magnesia) 2,400 mg PRN QHS PRN PO CONSTIPATION; Start 08/04/18 at 00:00 Divalproex Sodium (Depakote Sprinkles) 250 mg TID PO Last administered on at 19:23; Start 08/04/18 at 09:00 Melatonin 3 mg PRN QHS PRN PO INSOMNIA Last administered on 08/08/18at 19:38; Start 08/04/18 at 02:00 Non-Formulary Medication (Memantine HCl/ Donepezil HCl (Namzaric 28 mg-10 mg Capsule)) 1 each DAILY PO ; Start 08/04/18 at 09:00; Stop 08/04/18 at 14:14; Status DC Quetiapine Fumarate (SEROquel) 25 mg BID@0900,1500 PO Last administered on 08/08at 15:04; Start 08/04/18 at 09:45 Non-Formulary Medication (Quetiapine Fumarate (Seroquel)) 25 mg QHS PO ; Start 08/04/18 at 21:00; Status UNV Quetiapine Fumarate (SEROquel) 75 mg QHS PO Last administered on 08/08/18 19: 26; Start 08/04/18 at 21:00 Acetaminophen (Tylenol) 650 mg PRN Q6HRS PRN PO PAIN / TEMP; Start 08/04/18 at 02:00 Bisacodyl (Dulcolax Tab) 10 mg PRN DAILY PRN PO CONSTIPATION; Start 08/04/18 at 02:00 Vitamin D (Vitamin D3) 1,000 unit DAILY PO Last administered on 08/08/18 08:10 ; Start 08/04/18 at 09:00 Clonidine HCl (Catapres) 0.5 mg BID PO Last administered on 08/08/18 19:24; Start 08/04/18 at 09:00 Metoprolol Succinate (Toprol Xl) 25 mg DAILY PO Last administered on 08/08/18 08:10; Start 08/04/18 at 09:00 Aspirin (Children'S Aspirin) 81 mg DAILYWBKFT PO Last administered on 08:08; Start 08/04/18 at 08:00 Furosemide (Lasix) 40 mg BID94 PO Last administered on 08/08/18 15:04; Start 08/04/18 at 09:00 Levothyroxine Sodium (Synthroid) 50 mcg DAILY06 PO Last administered on 05:26; Start 08/04/18 at 06:00 Multivitamins/ Calcium (Thera-M Plus) 1 tab DAILY PO Last administered on 08:09; Start 08/04/18 at 09:00 Polyethylene Glycol (miraLAX) 17 gm DAILY PO Last administered on 08/08/18 08: 09; Start 08/04/18 at 09:00 Memantine (Namenda) 10 mg BID PO Last administered on 08/08/18 19:25; Start 08/04/18 at 21:00 Donepezil HCl (Aricept) 10 mg HS PO Last administered on 08/05/18 19:08; Start 08/04/18 at 21:00; Stop 08/06/18 at 18:50; Status DC Sertraline HCl (Zoloft) 25 mg DAILY PO Last administered on 08/07/18 08:40; Start 08/06/18 at 09:00; Stop 08/07/18 at 18:41; Status DC Donepezil HCl (Aricept) 10 mg DAILY PO Last administered on 08/08/18at 08:08; Start 08/06/18 at 09:00 Mirtazapine (Remeron) 7.5 mg QHS PO Last administered on 08/06/18at 19:02; Start 08/05/18 at 21:00; Stop 08/07/18 at 18:41; Status DC Olanzapine (ZyPREXA ZYDIS) 2.5 mg PRN Q2HR PRN PO PSYCHOSIS Last administered on 08/08/18at 20:55; Start 08/06/18 at 06:45 Trazodone HCl (Desyrel) 50 mg QHS PO Last administered on 08/08/18 19:25; Start 08/06/18 at 21:00 Trazodone HCl (Desyrel) 50 mg PRN QHS PRN PO INSOMNIA Last administered on 08/08 20:54; Start 08/06/18 at 19:00 Mirtazapine (Remeron) 15 mg QHS PO Last administered on 08/08/18at 19:25; Start 08/07/18 at 21:00 Sertraline HCl (Zoloft) 50 mg DAILY PO Last administered on 08/08/18at 08:11; Start 08/08/18 at 09:00 Active Scripts Active Reported Vitamin D3 (Cholecalciferol (Vitamin D3)) 1,000 Unit Tablet 1,000 Unit PO DAILY Quetiapine Fumarate 25 Mg Tablet 25 Mg PO BID Seroquel (Quetiapine Fumarate) 50 Mg Tablet 50 Mg PO QHS Seroquel (Quetiapine Fumarate) 25 Mg Tablet 25 Mg PO QHS Namzaric 28 mg-10 mg Capsule (Memantine HCl/Donepezil HCl) 1 Each Cap.spr.24 1 Each PO DAILY Multivitamins (Multivitamin) 1 Each Tablet 1 Each PO DAILY Metoprolol Succinate ( Xl ) (Metoprolol Succinate) 25 Mg Tab.er.24h 25 Mg PO DAILY Melatonin 3 Mg Tablet 3 Mg PO PRN QHS PRN Levothyroxine Sodium 50 Mcg Tablet 50 Mcg PO DAILYAC Miralax (Polyethylene Glycol 3350) 17 Gm Powd.pack 17 Gm PO DAILY Furosemide 40 Mg Tablet 40 Mg PO BID Depakote Sprinkle (Divalproex Sodium) 125 Mg Cap.sprink 250 Mg PO TID Clonidine Hcl 0.1 Mg Tablet 0.5 Mg PO BID Bisacodyl 5 Mg Tablet.dr 10 Mg PO DAILY PRN Aspir-Low (Aspirin) 81 Mg Tablet.dr 81 Mg PO DAILY Tylenol (Acetaminophen) 325 Mg Tablet 650 Mg PO PRN Q6HRS PRN I have reviewed the current psychotropics carefully including drug interactions. Risk benefit ratio favors no change other than as noted in my dictated progress note. Diagnosis: Problems: (1) Encounter for medical screening examination (2) Anxiety disorder (3) Dementia, vascular, with depression (4) Dementia, vascular, with delusions (5) Dementia in Alzheimer's disease with depression (6) Dementia in Alzheimer's disease with delusions (7) Impulse control disorder ELSY SOTO MD Aug 08, 2018 22:43
[2018-08-09] MEDS: LEVOTHYROXINE 50 MCG TABLET PO SCH (05:33)
[2018-08-09 06:03] VITALS: BP 186/80
[2018-08-09] MEDS: ASPIRIN 81 MG TAB.CHEW PO SCH (09:31)
[2018-08-09] MEDS: FUROSEMIDE 40 MG TABLET PO SCH ×2 (09:31→14:31)
[2018-08-09] MEDS: MEMANTINE 10 MG TABLET. PO SCH ×2 (09:31→19:28)
[2018-08-09] MEDS: POLYETHYLENE GLYCOL 3350 17 GM PACKET. PO SCH (09:31)
[2018-08-09] MEDS: SERTRALINE 50 MG TABLET. PO SCH (09:31)
[2018-08-09] MEDS: DIVALPROEX 125 MG CAP.SPRINK PO SCH ×3 (09:32→19:27)
[2018-08-09] MEDS: cloNIDine HCL 0.2 MG TABLET PO SCH ×2 (09:32→19:27)
[2018-08-09] MEDS: QUEtiapine 25 MG TABLET. PO SCH ×2 (09:32→14:31)
[2018-08-09] MEDS: MULTIVITAMIN with MINERAL TABLET. PO SCH (09:32)
[2018-08-09] MEDS: DONEPEZIL HCL 10 MG TABLET PO SCH (09:33)
[2018-08-09] MEDS: METOPROLOL SUCC 24HR ER 25 MG TAB.ER.24H. PO SCH (09:33)
[2018-08-09] MEDS: CHOLECALCIFEROL (VITAMIN D3) 1,000 UNIT TABLET PO SCH (09:33)
[2018-08-09 16:26] VITALS: BP 166/98
[2018-08-09] MEDS ORDERED: traZODone 100 MG TABLET. PO PRN (16:45)
[2018-08-09] MEDS: QUEtiapine 50 MG TABLET. PO SCH (19:28)
[2018-08-09] MEDS: MIRTAZAPINE 15 MG TABLET PO SCH (19:28)
[2018-08-09] MEDS: traZODone 100 MG TABLET. PO SCH (19:37)
--- NOTE | 2018-08-09 21:03 | PN ---
DATE: 08/08/2018 PSYCHIATRIC PROGRESS NOTE This late entry 08/08/2018 covers elements not covered in my initial note. SUBJECTIVE: I met with the patient in the evening. The patient had a good night and good day, slept 3-3/4 hours previous evening. REVIEW OF SYSTEMS: No CV, , pulmonary, eye, ENT system symptoms on review. Reliability poor. Gait unsteady in wheelchair. MENTAL STATUS EXAM: Oriented to himself. Insight, judgment, recent and remote memory, attention, concentration, fund of knowledge poor, consistent with his diagnosis. IMPRESSION: Major neurocognitive disorder, Alzheimer, vascular with delusion, depression, behavioral disturbance. Rest unchanged from initial note. PLAN: No change from initial note and we recently increased the Remeron to 15 mg at bedtime, Zoloft to 50 mg a day. Maintain Depakote. Rest of psychotropics unchanged. MAN Jean SOTO MD DR: GABRIEL/joe JOB#: [id number] / [id number]
--- NOTE | 2018-08-09 22:42 | PDOC ---
Exam Note: Marquis Note: Please also refer to the separate dictated note~for this date of service dictated separately.~Patient seen individually. Discussed the patient with Nursing staff reviewed the chart.~Reviewed interim history and current functioning. Reviewed vital signs,~Labs/ Radiology~and current medications noted below. Continue current treatment with the changes noted in the dictated addendum note Assessment: Vital Signs: Vital Signs Date Time Temp Pulse Resp B/P (MAP) Pulse Ox O2 Delivery O2 Flow Rate FiO2 08/09/18 19:27 76 166/98 08/09/18 16:26 97.8 18 97 Room Air I&O Intake and Output 08/09/18 07:00 Intake Total 1080 ml Balance 1080 ml Intake Oral 1080 ml Current Medications: Meds: Current Medications Acetaminophen (Tylenol) 650 mg PRN Q6HRS PRN PO PAIN / TEMP; Start 08/04/18 at 00:00; Stop 08/04/18 at 09:05; Status DC Al Hydroxide/Mg Hydroxide (Mylanta Plus Xs) 15 ml PRN AFTMEALHC PRN PO DYSPEPSIA; Start 08/04/18 at 00:00 Magnesium Hydroxide (Milk Of Magnesia) 2,400 mg PRN QHS PRN PO CONSTIPATION; Start 08/04/18 at 00:00 Divalproex Sodium (Depakote Sprinkles) 250 mg TID PO Last administered on at 19:27; Start 08/04/18 at 09:00 Melatonin 3 mg PRN QHS PRN PO INSOMNIA Last administered on 08/08/18at 19:38; Start 08/04/18 at 02:00 Non-Formulary Medication (Memantine HCl/ Donepezil HCl (Namzaric 28 mg-10 mg Capsule)) 1 each DAILY PO ; Start 08/04/18 at 09:00; Stop 08/04/18 at 14:14; Status DC Quetiapine Fumarate (SEROquel) 25 mg BID@0900,1500 PO Last administered on 08/09at 14:31; Start 08/04/18 at 09:45 Non-Formulary Medication (Quetiapine Fumarate (Seroquel)) 25 mg QHS PO ; Start 08/04/18 at 21:00; Status UNV Quetiapine Fumarate (SEROquel) 75 mg QHS PO Last administered on 08/09/18 19: 28; Start 08/04/18 at 21:00 Acetaminophen (Tylenol) 650 mg PRN Q6HRS PRN PO PAIN / TEMP; Start 08/04/18 at 02:00 Bisacodyl (Dulcolax Tab) 10 mg PRN DAILY PRN PO CONSTIPATION; Start 08/04/18 at 02:00 Vitamin D (Vitamin D3) 1,000 unit DAILY PO Last administered on 08/09/18 09:33 ; Start 08/04/18 at 09:00 Clonidine HCl (Catapres) 0.5 mg BID PO Last administered on 08/09/18 19:27; Start 08/04/18 at 09:00 Metoprolol Succinate (Toprol Xl) 25 mg DAILY PO Last administered on 08/09/18 09:33; Start 08/04/18 at 09:00 Aspirin (Children'S Aspirin) 81 mg DAILYWBKFT PO Last administered on 09:31; Start 08/04/18 at 08:00 Furosemide (Lasix) 40 mg BID94 PO Last administered on 08/09/18 14:31; Start 08/04/18 at 09:00 Levothyroxine Sodium (Synthroid) 50 mcg DAILY06 PO Last administered on 05:33; Start 08/04/18 at 06:00 Multivitamins/ Calcium (Thera-M Plus) 1 tab DAILY PO Last administered on 09:32; Start 08/04/18 at 09:00 Polyethylene Glycol (miraLAX) 17 gm DAILY PO Last administered on 08/09/18 09: 31; Start 08/04/18 at 09:00 Memantine (Namenda) 10 mg BID PO Last administered on 08/09/18 19:28; Start 08/04/18 at 21:00 Donepezil HCl (Aricept) 10 mg HS PO Last administered on 08/05/18 19:08; Start 08/04/18 at 21:00; Stop 08/06/18 at 18:50; Status DC Sertraline HCl (Zoloft) 25 mg DAILY PO Last administered on 08/07/18 08:40; Start 08/06/18 at 09:00; Stop 08/07/18 at 18:41; Status DC Donepezil HCl (Aricept) 10 mg DAILY PO Last administered on 08/09/18at 09:33; Start 08/06/18 at 09:00 Mirtazapine (Remeron) 7.5 mg QHS PO Last administered on 08/06/18at 19:02; Start 08/05/18 at 21:00; Stop 08/07/18 at 18:41; Status DC Olanzapine (ZyPREXA ZYDIS) 2.5 mg PRN Q2HR PRN PO PSYCHOSIS Last administered on 08/08/18at 20:55; Start 08/06/18 at 06:45 Trazodone HCl (Desyrel) 50 mg QHS PO Last administered on 08/08/18at 19:25; Start 08/06/18 at 21:00; Stop 08/09/18 at 16:37; Status DC Trazodone HCl (Desyrel) 50 mg PRN QHS PRN PO INSOMNIA Last administered on 08/08at 20:54; Start 08/06/18 at 19:00; Stop 08/09/18 at 16:37; Status DC Mirtazapine (Remeron) 15 mg QHS PO Last administered on 08/09/18at 19:28; Start 08/07/18 at 21:00 Sertraline HCl (Zoloft) 50 mg DAILY PO Last administered on 08/09/18at 09:31; Start 08/08/18 at 09:00 Trazodone HCl (Desyrel) 100 mg PRN QHS PRN PO INSOMNIA; Start 08/09/18 at 16:45 Trazodone HCl (Desyrel) 100 mg QHS PO Last administered on 08/09/18at 19:37; Start 08/09/18 at 21:00 Active Scripts Active Reported Vitamin D3 (Cholecalciferol (Vitamin D3)) 1,000 Unit Tablet 1,000 Unit PO DAILY Quetiapine Fumarate 25 Mg Tablet 25 Mg PO BID Seroquel (Quetiapine Fumarate) 50 Mg Tablet 50 Mg PO QHS Seroquel (Quetiapine Fumarate) 25 Mg Tablet 25 Mg PO QHS Namzaric 28 mg-10 mg Capsule (Memantine HCl/Donepezil HCl) 1 Each Cap.spr.24 1 Each PO DAILY Multivitamins (Multivitamin) 1 Each Tablet 1 Each PO DAILY Metoprolol Succinate ( Xl ) (Metoprolol Succinate) 25 Mg Tab.er.24h 25 Mg PO DAILY Melatonin 3 Mg Tablet 3 Mg PO PRN QHS PRN Levothyroxine Sodium 50 Mcg Tablet 50 Mcg PO DAILYAC Miralax (Polyethylene Glycol 3350) 17 Gm Powd.pack 17 Gm PO DAILY Furosemide 40 Mg Tablet 40 Mg PO BID Depakote Sprinkle (Divalproex Sodium) 125 Mg Cap.sprink 250 Mg PO TID Clonidine Hcl 0.1 Mg Tablet 0.5 Mg PO BID Bisacodyl 5 Mg Tablet.dr 10 Mg PO DAILY PRN Aspir-Low (Aspirin) 81 Mg Tablet.dr 81 Mg PO DAILY Tylenol (Acetaminophen) 325 Mg Tablet 650 Mg PO PRN Q6HRS PRN I have reviewed the current psychotropics carefully including drug interactions. Risk benefit ratio favors no change other than as noted in my dictated progress note. Diagnosis: Problems: (1) Encounter for medical screening examination (2) Anxiety disorder (3) Dementia, vascular, with depression (4) Dementia, vascular, with delusions (5) Dementia in Alzheimer's disease with depression (6) Dementia in Alzheimer's disease with delusions (7) Impulse control disorder ELSY SOTO MD Aug 09, 2018 22:42
[2018-08-10] MEDS: LEVOTHYROXINE 50 MCG TABLET PO SCH (05:46)
[2018-08-10 06:18] VITALS: BP 181/90
[2018-08-10] MEDS: FUROSEMIDE 40 MG TABLET PO SCH ×2 (08:06→16:58)
[2018-08-10] MEDS: QUEtiapine 25 MG TABLET. PO SCH ×2 (08:06→16:58)
[2018-08-10] MEDS: SERTRALINE 50 MG TABLET. PO SCH (08:06)
[2018-08-10] MEDS: DIVALPROEX 125 MG CAP.SPRINK PO SCH ×3 (08:06→19:40)
[2018-08-10] MEDS: CHOLECALCIFEROL (VITAMIN D3) 1,000 UNIT TABLET PO SCH (08:07)
[2018-08-10] MEDS: MULTIVITAMIN with MINERAL TABLET. PO SCH (08:07)
[2018-08-10] MEDS: ASPIRIN 81 MG TAB.CHEW PO SCH (08:07)
[2018-08-10] MEDS: DONEPEZIL HCL 10 MG TABLET PO SCH (08:07)
[2018-08-10] MEDS: METOPROLOL SUCC 24HR ER 25 MG TAB.ER.24H. PO SCH (08:07)
[2018-08-10] MEDS: MEMANTINE 10 MG TABLET. PO SCH ×2 (08:07→19:40)
[2018-08-10] MEDS: POLYETHYLENE GLYCOL 3350 17 GM PACKET. PO SCH (08:08)
[2018-08-10] MEDS: cloNIDine HCL 0.2 MG TABLET PO SCH ×2 (08:08→19:40)
[2018-08-10 16:17] VITALS: BP 149/84
[2018-08-10] MEDS: traZODone 100 MG TABLET. PO SCH (19:40)
[2018-08-10] MEDS: QUEtiapine 50 MG TABLET. PO SCH (19:41)
[2018-08-10] MEDS: MIRTAZAPINE 15 MG TABLET PO SCH (19:41)
--- NOTE | 2018-08-10 21:16 | PN ---
DATE: 08/09/2018 PSYCHIATRIC PROGRESS NOTE This late entry 08/09/2018 covers elements not covered in my initial note. SUBJECTIVE: I met with the patient in the evening. The patient slept 4 hours previous night. He has been combative with showers the previous night, but during the day, 08/09/2018 compliant with his medications. REVIEW OF SYSTEMS: Ambulation impaired with wheelchair. No CV, , pulmonary, eye, ENT system symptoms on review. MENTAL STATUS EXAM: Oriented to himself. Insight, judgment, recent and remote memory, attention, concentration, fund of knowledge poor, consistent with his diagnosis. IMPRESSION: Major neurocognitive disorder, Alzheimer, vascular with delusion, depression, behavioral disturbance; anxiety disorder, unspecified; impulse control disorder, unspecified. PLAN: Increase trazodone from 50 mg at bedtime, may repeat x 1 to 100 mg at bedtime, may repeat x 1 for insomnia. Rest psychotropics to be continued unchanged. I am not sure what the benefit is of Namenda and Aricept and we will discuss with family before stopping. MAN Jean SOTO MD DR: GABRIEL/joe JOB#: [id number] / [id number]
--- NOTE | 2018-08-10 22:43 | PDOC ---
Exam Note: Marquis Note: Please also refer to the separate dictated note~for this date of service dictated separately.~Patient seen individually. Discussed the patient with Nursing staff reviewed the chart.~Reviewed interim history and current functioning. Reviewed vital signs,~Labs/ Radiology~and current medications noted below. Continue current treatment with the changes noted in the dictated addendum note Assessment: Vital Signs: Vital Signs Date Time Temp Pulse Resp B/P (MAP) Pulse Ox O2 Delivery O2 Flow Rate FiO2 08/10/18 19:40 89 149/84 08/10/18 16:17 98.2 18 95 08/09/18 16:26 Room Air I&O Intake and Output 08/10/18 07:00 Intake Total 1320 ml Balance 1320 ml Intake Oral 1320 ml Current Medications: Meds: Current Medications Acetaminophen (Tylenol) 650 mg PRN Q6HRS PRN PO PAIN / TEMP; Start 08/04/18 at 00:00; Stop 08/04/18 at 09:05; Status DC Al Hydroxide/Mg Hydroxide (Mylanta Plus Xs) 15 ml PRN AFTMEALHC PRN PO DYSPEPSIA; Start 08/04/18 at 00:00 Magnesium Hydroxide (Milk Of Magnesia) 2,400 mg PRN QHS PRN PO CONSTIPATION; Start 08/04/18 at 00:00 Divalproex Sodium (Depakote Sprinkles) 250 mg TID PO Last administered on at 19:40; Start 08/04/18 at 09:00 Melatonin 3 mg PRN QHS PRN PO INSOMNIA Last administered on 08/08/18at 19:38; Start 08/04/18 at 02:00 Non-Formulary Medication (Memantine HCl/ Donepezil HCl (Namzaric 28 mg-10 mg Capsule)) 1 each DAILY PO ; Start 08/04/18 at 09:00; Stop 08/04/18 at 14:14; Status DC Quetiapine Fumarate (SEROquel) 25 mg BID@0900,1500 PO Last administered on 08/10at 16:58; Start 08/04/18 at 09:45 Non-Formulary Medication (Quetiapine Fumarate (Seroquel)) 25 mg QHS PO ; Start 08/04/18 at 21:00; Status UNV Quetiapine Fumarate (SEROquel) 75 mg QHS PO Last administered on 08/10/18 19: 41; Start 08/04/18 at 21:00 Acetaminophen (Tylenol) 650 mg PRN Q6HRS PRN PO PAIN / TEMP; Start 08/04/18 at 02:00 Bisacodyl (Dulcolax Tab) 10 mg PRN DAILY PRN PO CONSTIPATION; Start 08/04/18 at 02:00 Vitamin D (Vitamin D3) 1,000 unit DAILY PO Last administered on 08/10/18 08:07 ; Start 08/04/18 at 09:00 Clonidine HCl (Catapres) 0.5 mg BID PO Last administered on 08/10/18 19:40; Start 08/04/18 at 09:00 Metoprolol Succinate (Toprol Xl) 25 mg DAILY PO Last administered on 08/10/18 08:07; Start 08/04/18 at 09:00 Aspirin (Children'S Aspirin) 81 mg DAILYWBKFT PO Last administered on 08:07; Start 08/04/18 at 08:00 Furosemide (Lasix) 40 mg BID94 PO Last administered on 08/10/18 16:58; Start 08/04/18 at 09:00 Levothyroxine Sodium (Synthroid) 50 mcg DAILY06 PO Last administered on 05:46; Start 08/04/18 at 06:00 Multivitamins/ Calcium (Thera-M Plus) 1 tab DAILY PO Last administered on 08:07; Start 08/04/18 at 09:00 Polyethylene Glycol (miraLAX) 17 gm DAILY PO Last administered on 08/10/18 08: 08; Start 08/04/18 at 09:00 Memantine (Namenda) 10 mg BID PO Last administered on 08/10/18 19:40; Start 08/04/18 at 21:00 Donepezil HCl (Aricept) 10 mg HS PO Last administered on 08/05/18 19:08; Start 08/04/18 at 21:00; Stop 08/06/18 at 18:50; Status DC Sertraline HCl (Zoloft) 25 mg DAILY PO Last administered on 08/07/18 08:40; Start 08/06/18 at 09:00; Stop 08/07/18 at 18:41; Status DC Donepezil HCl (Aricept) 10 mg DAILY PO Last administered on 08/10/18 08:07; Start 08/06/18 at 09:00 Mirtazapine (Remeron) 7.5 mg QHS PO Last administered on 08/06/18at 19:02; Start 08/05/18 at 21:00; Stop 08/07/18 at 18:41; Status DC Olanzapine (ZyPREXA ZYDIS) 2.5 mg PRN Q2HR PRN PO PSYCHOSIS Last administered on 08/10/18at 16:58; Start 08/06/18 at 06:45 Trazodone HCl (Desyrel) 50 mg QHS PO Last administered on 08/08/18at 19:25; Start 08/06/18 at 21:00; Stop 08/09/18 at 16:37; Status DC Trazodone HCl (Desyrel) 50 mg PRN QHS PRN PO INSOMNIA Last administered on 08/08at 20:54; Start 08/06/18 at 19:00; Stop 08/09/18 at 16:37; Status DC Mirtazapine (Remeron) 15 mg QHS PO Last administered on 08/10/18at 19:41; Start 08/07/18 at 21:00 Sertraline HCl (Zoloft) 50 mg DAILY PO Last administered on 08/10/18at 08:06; Start 08/08/18 at 09:00 Trazodone HCl (Desyrel) 100 mg PRN QHS PRN PO INSOMNIA; Start 08/09/18 at 16:45 Trazodone HCl (Desyrel) 100 mg QHS PO Last administered on 08/10/18at 19:40; Start 08/09/18 at 21:00 Active Scripts Active Reported Vitamin D3 (Cholecalciferol (Vitamin D3)) 1,000 Unit Tablet 1,000 Unit PO DAILY Quetiapine Fumarate 25 Mg Tablet 25 Mg PO BID Seroquel (Quetiapine Fumarate) 50 Mg Tablet 50 Mg PO QHS Seroquel (Quetiapine Fumarate) 25 Mg Tablet 25 Mg PO QHS Namzaric 28 mg-10 mg Capsule (Memantine HCl/Donepezil HCl) 1 Each Cap.spr.24 1 Each PO DAILY Multivitamins (Multivitamin) 1 Each Tablet 1 Each PO DAILY Metoprolol Succinate ( Xl ) (Metoprolol Succinate) 25 Mg Tab.er.24h 25 Mg PO DAILY Melatonin 3 Mg Tablet 3 Mg PO PRN QHS PRN Levothyroxine Sodium 50 Mcg Tablet 50 Mcg PO DAILYAC Miralax (Polyethylene Glycol 3350) 17 Gm Powd.pack 17 Gm PO DAILY Furosemide 40 Mg Tablet 40 Mg PO BID Depakote Sprinkle (Divalproex Sodium) 125 Mg Cap.sprink 250 Mg PO TID Clonidine Hcl 0.1 Mg Tablet 0.5 Mg PO BID Bisacodyl 5 Mg Tablet.dr 10 Mg PO DAILY PRN Aspir-Low (Aspirin) 81 Mg Tablet.dr 81 Mg PO DAILY Tylenol (Acetaminophen) 325 Mg Tablet 650 Mg PO PRN Q6HRS PRN I have reviewed the current psychotropics carefully including drug interactions. Risk benefit ratio favors no change other than as noted in my dictated progress note. Diagnosis: Problems: (1) Encounter for medical screening examination (2) Anxiety disorder (3) Dementia, vascular, with depression (4) Dementia, vascular, with delusions (5) Dementia in Alzheimer's disease with depression (6) Dementia in Alzheimer's disease with delusions (7) Impulse control disorder ELSY SOTO MD Aug 10, 2018 22:43
[2018-08-11] MEDS: LEVOTHYROXINE 50 MCG TABLET PO SCH (05:22)
[2018-08-11 06:16] VITALS: BP 191/79
[2018-08-11] MEDS: MEMANTINE 10 MG TABLET. PO SCH ×2 (09:43→20:23)
[2018-08-11] MEDS: CHOLECALCIFEROL (VITAMIN D3) 1,000 UNIT TABLET PO SCH (09:43)
[2018-08-11] MEDS: SERTRALINE 50 MG TABLET. PO SCH (09:43)
[2018-08-11] MEDS: DIVALPROEX 125 MG CAP.SPRINK PO SCH ×3 (09:43→20:24)
[2018-08-11] MEDS: cloNIDine HCL 0.2 MG TABLET PO SCH ×2 (09:44→20:25)
[2018-08-11] MEDS: FUROSEMIDE 40 MG TABLET PO SCH ×2 (09:45→13:28)
[2018-08-11] MEDS: MULTIVITAMIN with MINERAL TABLET. PO SCH (09:45)
[2018-08-11] MEDS: QUEtiapine 25 MG TABLET. PO SCH ×2 (09:45→13:28)
[2018-08-11] MEDS: METOPROLOL SUCC 24HR ER 25 MG TAB.ER.24H. PO SCH (09:45)
[2018-08-11] MEDS: DONEPEZIL HCL 10 MG TABLET PO SCH (09:45)
[2018-08-11] MEDS: ASPIRIN 81 MG TAB.CHEW PO SCH (09:45)
[2018-08-11] MEDS: POLYETHYLENE GLYCOL 3350 17 GM PACKET. PO SCH (09:46)
[2018-08-11 10:03] LABS: BASO # 0.1 x10^3/uL (0.0-0.2); BASO % 1 % (0-3); EOS # 0.1 x10^3/uL (0.0-0.7); EOS % 1 % (0-3); HEMOGLOBIN 10.8 g/dL (13.0-17.5); LYMPH # 1.9 x10^3/uL (1.0-4.8); LYMPH % 29 % (24-48); MEAN CORPUSCULAR HEMOGLOBIN 32 pg (25-35); MEAN CORPUSCULAR HGB CONC 34 g/dL (31-37); MEAN CORPUSCULAR VOLUME 96 fL (79-100); MONO # 0.6 x10^3/uL (0.0-1.1); MONO % 9 % (0-9); NEUT # 3.9 x10^3uL (1.8-7.7); NEUT % 59 % (31-73); PLATELET COUNT 288 x10^3/uL (140-400); RED BLOOD COUNT 3.34 x10^6/uL (4.30-5.70); WHITE BLOOD COUNT 6.6 x10^3/uL (4.0-11.0)
[2018-08-11 10:20] LABS: ALBUMIN 2.7 g/dL (3.4-5.0); ALBUMIN/GLOBULIN RATIO 0.6 (1.0-1.7); CALCIUM 8.8 mg/dL (8.5-10.1); CREATININE 1.8 mg/dL (0.7-1.3); GFR 35.7; POTASSIUM 3.8 mmol/L (3.5-5.1); TOTAL BILIRUBIN 0.3 mg/dL (0.2-1.0); TOTAL PROTEIN 7.2 g/dL (6.4-8.2)
[2018-08-11 16:04] VITALS: BP 114/71
[2018-08-11] MEDS: MIRTAZAPINE 15 MG TABLET PO SCH (20:23)
[2018-08-11] MEDS: MELATONIN 3 MG TABLET PO PRN (20:24)
[2018-08-11] MEDS: QUEtiapine 50 MG TABLET. PO SCH (20:24)
[2018-08-11] MEDS: traZODone 100 MG TABLET. PO SCH (20:24)
--- NOTE | 2018-08-11 22:46 | PDOC ---
Exam Note: Marquis Note: Please also refer to the separate dictated note~for this date of service dictated separately.~Patient seen individually. Discussed the patient with Nursing staff reviewed the chart.~Reviewed interim history and current functioning. Reviewed vital signs,~Labs/ Radiology~and current medications noted below. Continue current treatment with the changes noted in the dictated addendum note Assessment: Vital Signs: Vital Signs Date Time Temp Pulse Resp B/P (MAP) Pulse Ox O2 Delivery O2 Flow Rate FiO2 08/11/18 20:25 55 114/71 08/11/18 16:04 98.3 16 97 Room Air I&O Intake and Output 08/11/18 07:00 Intake Total 960 ml Balance 960 ml Intake Oral 960 ml Labs: Laboratory Tests Test 08/11/18 09:49 White Blood Count 6.6 x10^3/uL (4.0-11.0) Red Blood Count 3.34 x10^6/uL (4.30-5.70) L Hemoglobin 10.8 g/dL (13.0-17.5) L Hematocrit 32.0 % (39.0-53.0) L Mean Corpuscular Volume 96 fL (79-100) Mean Corpuscular Hemoglobin 32 pg (25-35) Mean Corpuscular Hemoglobin Concent 34 g/dL (31-37) Red Cell Distribution Width 14.0 % (11.5-14.5) Platelet Count 288 x10^3/uL (140-400) Neutrophils (%) (Auto) 59 % (31-73) Lymphocytes (%) (Auto) 29 % (24-48) Monocytes (%) (Auto) 9 % (0-9) Eosinophils (%) (Auto) 1 % (0-3) Basophils (%) (Auto) 1 % (0-3) Neutrophils # (Auto) 3.9 x10^3uL (1.8-7.7) Lymphocytes # (Auto) 1.9 x10^3/uL (1.0-4.8) Monocytes # (Auto) 0.6 x10^3/uL (0.0-1.1) Eosinophils # (Auto) 0.1 x10^3/uL (0.0-0.7) Basophils # (Auto) 0.1 x10^3/uL (0.0-0.2) Sodium Level 142 mmol/L (136-145) Potassium Level 3.8 mmol/L (3.5-5.1) Chloride Level 102 mmol/L (98-107) Carbon Dioxide Level 34 mmol/L (21-32) H Anion Gap 6 (6-14) Blood Urea Nitrogen 36 mg/dL (8-26) H Creatinine 1.8 mg/dL (0.7-1.3) H Estimated GFR (Cockcroft-Gault) 35.7 BUN/Creatinine Ratio 20 (6-20) Glucose Level 116 mg/dL (70-99) H Calcium Level 8.8 mg/dL (8.5-10.1) Total Bilirubin 0.3 mg/dL (0.2-1.0) Aspartate Amino Transferase (AST) 15 U/L (15-37) Alanine Aminotransferase (ALT) 11 U/L (16-63) L Alkaline Phosphatase 93 U/L (46-116) Total Protein 7.2 g/dL (6.4-8.2) Albumin 2.7 g/dL (3.4-5.0) L Albumin/Globulin Ratio 0.6 (1.0-1.7) L Current Medications: Meds: Current Medications Acetaminophen (Tylenol) 650 mg PRN Q6HRS PRN PO PAIN / TEMP; Start 08/04/18 at 00:00; Stop 08/04/18 at 09:05; Status DC Al Hydroxide/Mg Hydroxide (Mylanta Plus Xs) 15 ml PRN AFTMEALHC PRN PO DYSPEPSIA; Start 08/04/18 at 00:00 Magnesium Hydroxide (Milk Of Magnesia) 2,400 mg PRN QHS PRN PO CONSTIPATION; Start 08/04/18 at 00:00 Divalproex Sodium (Depakote Sprinkles) 250 mg TID PO Last administered on at 20:24; Start 08/04/18 at 09:00 Melatonin 3 mg PRN QHS PRN PO INSOMNIA Last administered on 08/11/18at 20:24; Start 08/04/18 at 02:00 Non-Formulary Medication (Memantine HCl/ Donepezil HCl (Namzaric 28 mg-10 mg Capsule)) 1 each DAILY PO ; Start 08/04/18 at 09:00; Stop 08/04/18 at 14:14; Status DC Quetiapine Fumarate (SEROquel) 25 mg BID@0900,1500 PO Last administered on 08/11 13:28; Start 08/04/18 at 09:45 Non-Formulary Medication (Quetiapine Fumarate (Seroquel)) 25 mg QHS PO ; Start 08/04/18 at 21:00; Status UNV Quetiapine Fumarate (SEROquel) 75 mg QHS PO Last administered on 08/11/18 20: 24; Start 08/04/18 at 21:00 Acetaminophen (Tylenol) 650 mg PRN Q6HRS PRN PO PAIN / TEMP; Start 08/04/18 at 02:00 Bisacodyl (Dulcolax Tab) 10 mg PRN DAILY PRN PO CONSTIPATION; Start 08/04/18 at 02:00 Vitamin D (Vitamin D3) 1,000 unit DAILY PO Last administered on 08/11/18 09:43 ; Start 08/04/18 at 09:00 Clonidine HCl (Catapres) 0.5 mg BID PO Last administered on 08/11/18 20:25; Start 08/04/18 at 09:00 Metoprolol Succinate (Toprol Xl) 25 mg DAILY PO Last administered on 08/11/18 09:45; Start 08/04/18 at 09:00 Aspirin (Children'S Aspirin) 81 mg DAILYWBKFT PO Last administered on 09:45; Start 08/04/18 at 08:00 Furosemide (Lasix) 40 mg BID94 PO Last administered on 08/11/18 13:28; Start 08/04/18 at 09:00 Levothyroxine Sodium (Synthroid) 50 mcg DAILY06 PO Last administered on 05:22; Start 08/04/18 at 06:00 Multivitamins/ Calcium (Thera-M Plus) 1 tab DAILY PO Last administered on 09:45; Start 08/04/18 at 09:00 Polyethylene Glycol (miraLAX) 17 gm DAILY PO Last administered on 08/11/18 09: 46; Start 08/04/18 at 09:00 Memantine (Namenda) 10 mg BID PO Last administered on 08/11/18 20:23; Start 08/04/18 at 21:00 Donepezil HCl (Aricept) 10 mg HS PO Last administered on 08/05/18at 19:08; Start 08/04/18 at 21:00; Stop 08/06/18 at 18:50; Status DC Sertraline HCl (Zoloft) 25 mg DAILY PO Last administered on 08/07/18at 08:40; Start 08/06/18 at 09:00; Stop 08/07/18 at 18:41; Status DC Donepezil HCl (Aricept) 10 mg DAILY PO Last administered on 08/11/18at 09:45; Start 08/06/18 at 09:00 Mirtazapine (Remeron) 7.5 mg QHS PO Last administered on 08/06/18at 19:02; Start 08/05/18 at 21:00; Stop 08/07/18 at 18:41; Status DC Olanzapine (ZyPREXA ZYDIS) 2.5 mg PRN Q2HR PRN PO PSYCHOSIS Last administered on 08/11/18at 18:19; Start 08/06/18 at 06:45 Trazodone HCl (Desyrel) 50 mg QHS PO Last administered on 08/08/18at 19:25; Start 08/06/18 at 21:00; Stop 08/09/18 at 16:37; Status DC Trazodone HCl (Desyrel) 50 mg PRN QHS PRN PO INSOMNIA Last administered on 08/08at 20:54; Start 08/06/18 at 19:00; Stop 08/09/18 at 16:37; Status DC Mirtazapine (Remeron) 15 mg QHS PO Last administered on 08/11/18at 20:23; Start 08/07/18 at 21:00 Sertraline HCl (Zoloft) 50 mg DAILY PO Last administered on 08/11/18at 09:43; Start 08/08/18 at 09:00 Trazodone HCl (Desyrel) 100 mg PRN QHS PRN PO INSOMNIA; Start 08/09/18 at 16:45 Trazodone HCl (Desyrel) 100 mg QHS PO Last administered on 08/11/18at 20:24; Start 08/09/18 at 21:00 Active Scripts Active Reported Vitamin D3 (Cholecalciferol (Vitamin D3)) 1,000 Unit Tablet 1,000 Unit PO DAILY Quetiapine Fumarate 25 Mg Tablet 25 Mg PO BID Seroquel (Quetiapine Fumarate) 50 Mg Tablet 50 Mg PO QHS Seroquel (Quetiapine Fumarate) 25 Mg Tablet 25 Mg PO QHS Namzaric 28 mg-10 mg Capsule (Memantine HCl/Donepezil HCl) 1 Each Cap.spr.24 1 Each PO DAILY Multivitamins (Multivitamin) 1 Each Tablet 1 Each PO DAILY Metoprolol Succinate ( Xl ) (Metoprolol Succinate) 25 Mg Tab.er.24h 25 Mg PO DAILY Melatonin 3 Mg Tablet 3 Mg PO PRN QHS PRN Levothyroxine Sodium 50 Mcg Tablet 50 Mcg PO DAILYAC Miralax (Polyethylene Glycol 3350) 17 Gm Powd.pack 17 Gm PO DAILY Furosemide 40 Mg Tablet 40 Mg PO BID Depakote Sprinkle (Divalproex Sodium) 125 Mg Cap.sprink 250 Mg PO TID Clonidine Hcl 0.1 Mg Tablet 0.5 Mg PO BID Bisacodyl 5 Mg Tablet.dr 10 Mg PO DAILY PRN Aspir-Low (Aspirin) 81 Mg Tablet.dr 81 Mg PO DAILY Tylenol (Acetaminophen) 325 Mg Tablet 650 Mg PO PRN Q6HRS PRN I have reviewed the current psychotropics carefully including drug interactions. Risk benefit ratio favors no change other than as noted in my dictated progress note. Diagnosis: Problems: (1) Encounter for medical screening examination (2) Anxiety disorder (3) Dementia, vascular, with depression (4) Dementia, vascular, with delusions (5) Dementia in Alzheimer's disease with depression (6) Dementia in Alzheimer's disease with delusions (7) Impulse control disorder ELSY SOTO MD Aug 11, 2018 22:46
[2018-08-12] MEDS: MAGNESIUM HYDROXIDE 2,400 MG/30 ML ORAL.SUSP. PO PRN ×2 (05:59→14:23)
[2018-08-12] MEDS: LEVOTHYROXINE 50 MCG TABLET PO SCH ×2 (05:59→06:00)
[2018-08-12 06:04] VITALS: BP 180/78
[2018-08-12] MEDS: DIVALPROEX 125 MG CAP.SPRINK PO SCH ×3 (10:36→19:56)
[2018-08-12] MEDS: cloNIDine HCL 0.2 MG TABLET PO SCH (10:36)
[2018-08-12] MEDS: CHOLECALCIFEROL (VITAMIN D3) 1,000 UNIT TABLET PO SCH (10:37)
[2018-08-12] MEDS: SERTRALINE 50 MG TABLET. PO SCH (10:37)
[2018-08-12] MEDS: FUROSEMIDE 40 MG TABLET PO SCH ×2 (10:40→16:42)
[2018-08-12] MEDS: QUEtiapine 25 MG TABLET. PO SCH ×3 (10:40→17:24)
[2018-08-12] MEDS: METOPROLOL SUCC 24HR ER 25 MG TAB.ER.24H. PO SCH (10:40)
[2018-08-12] MEDS: MEMANTINE 10 MG TABLET. PO SCH ×2 (10:40→19:56)
[2018-08-12] MEDS: DONEPEZIL HCL 10 MG TABLET PO SCH (10:40)
[2018-08-12] MEDS: ASPIRIN 81 MG TAB.CHEW PO SCH (10:40)
[2018-08-12] MEDS: POLYETHYLENE GLYCOL 3350 17 GM PACKET. PO SCH (10:40)
[2018-08-12] MEDS: MULTIVITAMIN with MINERAL TABLET. PO SCH (10:40)
[2018-08-12 16:47] VITALS: BP 191/80
[2018-08-12] MEDS: LORazepam 2 MG/ML VIAL IM SCH (19:24)
[2018-08-12] MEDS: HALOPERIDOL LACT 5 MG/ML VIAL. IM SCH (19:25)
[2018-08-12] MEDS: traZODone 100 MG TABLET. PO SCH (19:56)
[2018-08-12] MEDS: MIRTAZAPINE 15 MG TABLET PO SCH (19:56)
[2018-08-12] MEDS: QUEtiapine 50 MG TABLET. PO SCH (19:56)
[2018-08-12] MEDS: hydrALAZINE 25 MG TABLET PO SCH (19:58)
--- NOTE | 2018-08-12 20:15 | PN ---
DATE: 08/10/2018 PSYCHIATRIC PROGRESS NOTE This late entry 08/10/2018 covers elements not covered in my initial note. SUBJECTIVE: I met with the patient in the evening. The patient slept 7-1/4 hours previous evening. He did alright until lunchtime and then he was agitated, psychotic, kicking, per nursing report, banging the doors, wanting to go home. Takes his medications crushed. REVIEW OF SYSTEMS: Ambulation impaired, in wheelchair. No CV, , pulmonary, eye, ENT system symptoms on review. MENTAL STATUS EXAM: Oriented to himself. Insight, judgment, recent and remote memory, attention, concentration, fund of knowledge poor, consistent with his diagnosis mentioned in my initial note. IMPRESSION: Unchanged from initial note. PLAN: No change from initial note. MAN Jean SOTO MD DR: GABRIEL/joe JOB#: [id number] / [id number]
[2018-08-12] MEDS ORDERED: cloNIDine TTS-2 1 PATCH PATCH TD SCH (21:00)
[2018-08-12] MEDS: MELATONIN 3 MG TABLET PO PRN (21:28)
--- NOTE | 2018-08-12 21:41 | PN ---
DATE: 08/11/2018 PSYCHIATRIC PROGRESS NOTE This late entry 08/11/2018 covers elements not covered in my initial note. SUBJECTIVE: I met with the patient in the evening, staffed at a treatment team meeting with the entire team in the morning. The patient slept 6 hours previous evening. He seems to get more agitated when he is hungry and blood sugars dropped and staff is going to give him extra frequent snacks to help with his appetite, otherwise is fair. He is quite agitated in the evening, banging on the doors, loud, disruptive, aggressive, extremely volatile. Received Zyprexa p.r.n. and we have increased it to 2.5 mg q.2 hours p.r.n. psychosis, agitation, max 10 mg in 24 hours. REVIEW OF SYSTEMS: Ambulation impaired, in wheelchair. No CV, , pulmonary, eye, ENT system symptoms on review. Reliability poor. MENTAL STATUS EXAM: Oriented to himself. Insight, judgment, recent and remote memory, attention, concentration, fund of knowledge poor, consistent with his diagnosis. IMPRESSION: Major neurocognitive disorder, Alzheimer, vascular with delusion, depression, behavioral disturbance. Rest unchanged. PLAN: No change from initial note. May need to increase Seroquel if agitation persists. ELSY SOTO MD DR: GABRIEL/joe JOB#: [id number] / [id number]
--- NOTE | 2018-08-12 22:30 | PDOC ---
Exam Note: Marquis Note: Please also refer to the separate dictated note~for this date of service dictated separately.~Patient seen individually. Discussed the patient with Nursing staff reviewed the chart.~Reviewed interim history and current functioning. Reviewed vital signs,~Labs/ Radiology~and current medications noted below. Continue current treatment with the changes noted in the dictated addendum note Assessment: Vital Signs: Vital Signs Date Time Temp Pulse Resp B/P (MAP) Pulse Ox O2 Delivery O2 Flow Rate FiO2 08/12/18 19:58 61 191/80 08/12/18 16:47 97.7 18 98 Room Air I&O Intake and Output 08/12/18 07:00 Intake Total 1080 ml Balance 1080 ml Intake Oral 1080 ml Current Medications: Meds: Current Medications Acetaminophen (Tylenol) 650 mg PRN Q6HRS PRN PO PAIN / TEMP; Start 08/04/18 at 00:00; Stop 08/04/18 at 09:05; Status DC Al Hydroxide/Mg Hydroxide (Mylanta Plus Xs) 15 ml PRN AFTMEALHC PRN PO DYSPEPSIA; Start 08/04/18 at 00:00 Magnesium Hydroxide (Milk Of Magnesia) 2,400 mg PRN QHS PRN PO CONSTIPATION; Start 08/04/18 at 00:00 Divalproex Sodium (Depakote Sprinkles) 250 mg TID PO Last administered on at 19:56; Start 08/04/18 at 09:00 Melatonin 3 mg PRN QHS PRN PO INSOMNIA Last administered on 08/12/18at 21:28; Start 08/04/18 at 02:00 Non-Formulary Medication (Memantine HCl/ Donepezil HCl (Namzaric 28 mg-10 mg Capsule)) 1 each DAILY PO ; Start 08/04/18 at 09:00; Stop 08/04/18 at 14:14; Status DC Quetiapine Fumarate (SEROquel) 25 mg BID@0900,1500 PO Last administered on 08/12at 14:24; Start 08/04/18 at 09:45; Stop 08/12/18 at 16:50; Status DC Non-Formulary Medication (Quetiapine Fumarate (Seroquel)) 25 mg QHS PO ; Start 08/04/18 at 21:00; Status UNV Quetiapine Fumarate (SEROquel) 75 mg QHS PO Last administered on 08/12/18 19: 56; Start 08/04/18 at 21:00 Acetaminophen (Tylenol) 650 mg PRN Q6HRS PRN PO PAIN / TEMP; Start 08/04/18 at 02:00 Bisacodyl (Dulcolax Tab) 10 mg PRN DAILY PRN PO CONSTIPATION Last administered on 08/12/18 14:57; Start 08/04/18 at 02:00 Vitamin D (Vitamin D3) 1,000 unit DAILY PO Last administered on 08/12/18 10:37 ; Start 08/04/18 at 09:00 Clonidine HCl (Catapres) 0.5 mg BID PO Last administered on 08/12/18 10:36; Start 08/04/18 at 09:00; Stop 08/12/18 at 17:15; Status DC Metoprolol Succinate (Toprol Xl) 25 mg DAILY PO Last administered on 08/12/18 10:40; Start 08/04/18 at 09:00 Aspirin (Children'S Aspirin) 81 mg DAILYWBKFT PO Last administered on 10:40; Start 08/04/18 at 08:00 Furosemide (Lasix) 40 mg BID94 PO Last administered on 08/12/18 16:42; Start 08/04/18 at 09:00 Levothyroxine Sodium (Synthroid) 50 mcg DAILY06 PO Last administered on 05:22; Start 08/04/18 at 06:00 Multivitamins/ Calcium (Thera-M Plus) 1 tab DAILY PO Last administered on 10:40; Start 08/04/18 at 09:00 Polyethylene Glycol (miraLAX) 17 gm DAILY PO Last administered on 08/12/18 10: 40; Start 08/04/18 at 09:00 Memantine (Namenda) 10 mg BID PO Last administered on 08/12/18 19:56; Start 08/04/18 at 21:00 Donepezil HCl (Aricept) 10 mg HS PO Last administered on 08/05/18 19:08; Start 08/04/18 at 21:00; Stop 08/06/18 at 18:50; Status DC Sertraline HCl (Zoloft) 25 mg DAILY PO Last administered on 08/07/18 08:40; Start 08/06/18 at 09:00; Stop 08/07/18 at 18:41; Status DC Donepezil HCl (Aricept) 10 mg DAILY PO Last administered on 08/12/18at 10:40; Start 08/06/18 at 09:00 Mirtazapine (Remeron) 7.5 mg QHS PO Last administered on 08/06/18 19:02; Start 08/05/18 at 21:00; Stop 08/07/18 at 18:41; Status DC Olanzapine (ZyPREXA ZYDIS) 2.5 mg PRN Q2HR PRN PO PSYCHOSIS Last administered on 08/12/18 21:28; Start 08/06/18 at 06:45 Trazodone HCl (Desyrel) 50 mg QHS PO Last administered on 08/08/18 19:25; Start 08/06/18 at 21:00; Stop 08/09/18 at 16:37; Status DC Trazodone HCl (Desyrel) 50 mg PRN QHS PRN PO INSOMNIA Last administered on 08/08 20:54; Start 08/06/18 at 19:00; Stop 08/09/18 at 16:37; Status DC Mirtazapine (Remeron) 15 mg QHS PO Last administered on 08/12/18at 19:56; Start 08/07/18 at 21:00 Sertraline HCl (Zoloft) 50 mg DAILY PO Last administered on 08/12/18at 10:37; Start 08/08/18 at 09:00 Trazodone HCl (Desyrel) 100 mg PRN QHS PRN PO INSOMNIA Last administered on 21:28; Start 08/09/18 at 16:45 Trazodone HCl (Desyrel) 100 mg QHS PO Last administered on 08/12/18 19:56; Start 08/09/18 at 21:00 Quetiapine Fumarate (SEROquel) 37.5 mg TID@0900,1300,1700 PO Last administered on 08/12/18 17:24; Start 08/12/18 at 17:00 Hydralazine HCl (Apresoline) 25 mg TID PO Last administered on 08/12/18at 19:58 ; Start 08/12/18 at 21:00 Clonidine HCl (Catapres Tts-2) 1 patch WEEKLY TD Last administered on at 19:59; Start 08/12/18 at 21:00 Haloperidol Lactate (Haldol) 5 mg DAILY IM Last administered on 08/12/18at 19:25 ; Start 08/12/18 at 19:00 Lorazepam (Ativan) 0.5 mg DAILY IM Last administered on 08/12/18at 19:24; Start 08/12/18 at 19:00 Active Scripts Active Reported Vitamin D3 (Cholecalciferol (Vitamin D3)) 1,000 Unit Tablet 1,000 Unit PO DAILY Quetiapine Fumarate 25 Mg Tablet 25 Mg PO BID Seroquel (Quetiapine Fumarate) 50 Mg Tablet 50 Mg PO QHS Seroquel (Quetiapine Fumarate) 25 Mg Tablet 25 Mg PO QHS Namzaric 28 mg-10 mg Capsule (Memantine HCl/Donepezil HCl) 1 Each Cap.spr.24 1 Each PO DAILY Multivitamins (Multivitamin) 1 Each Tablet 1 Each PO DAILY Metoprolol Succinate ( Xl ) (Metoprolol Succinate) 25 Mg Tab.er.24h 25 Mg PO DAILY Melatonin 3 Mg Tablet 3 Mg PO PRN QHS PRN Levothyroxine Sodium 50 Mcg Tablet 50 Mcg PO DAILYAC Miralax (Polyethylene Glycol 3350) 17 Gm Powd.pack 17 Gm PO DAILY Furosemide 40 Mg Tablet 40 Mg PO BID Depakote Sprinkle (Divalproex Sodium) 125 Mg Cap.sprink 250 Mg PO TID Clonidine Hcl 0.1 Mg Tablet 0.5 Mg PO BID Bisacodyl 5 Mg Tablet.dr 10 Mg PO DAILY PRN Aspir-Low (Aspirin) 81 Mg Tablet.dr 81 Mg PO DAILY Tylenol (Acetaminophen) 325 Mg Tablet 650 Mg PO PRN Q6HRS PRN I have reviewed the current psychotropics carefully including drug interactions. Risk benefit ratio favors no change other than as noted in my dictated progress note. Diagnosis: Problems: (1) Encounter for medical screening examination (2) Anxiety disorder (3) Dementia, vascular, with depression (4) Dementia, vascular, with delusions (5) Dementia in Alzheimer's disease with depression (6) Dementia in Alzheimer's disease with delusions (7) Impulse control disorder ELSY SOTO MD Aug 12, 2018 22:30
[2018-08-12 22:57] LABS: BILIRUBIN,URINE NEG (NEG); CLARITY,URINE HAZY; COLOR,URINE YELLOW; GLUCOSE,URINE NEG (NEG); NITRITE,URINE NEG (NEG); UROBILINOGEN,URINE 0.2 mg/dL (0.2 mg/dL)
[2018-08-12 22:58] LABS: BACTERIA,URINE 0 /HPF (0-FEW); HYALINE CASTS, URINE MANY /HPF; SQUAMOUS EPITHELIAL CELL,UR OCC /LPF; WBC,URINE RARE /HPF (0-4)
[2018-08-13] MEDS: LEVOTHYROXINE 50 MCG TABLET PO SCH (05:30)
[2018-08-13] MEDS: METOPROLOL SUCC 24HR ER 25 MG TAB.ER.24H. PO SCH (05:31)
[2018-08-13] MEDS: MAGNESIUM HYDROXIDE 2,400 MG/30 ML ORAL.SUSP. PO PRN (05:32)
[2018-08-13] MEDS: hydrALAZINE 25 MG TABLET PO SCH ×3 (05:32→19:35)
[2018-08-13 05:47] VITALS: BP 188/92
[2018-08-13] MEDS: ASPIRIN 81 MG TAB.CHEW PO SCH (08:00)
[2018-08-13] MEDS: MEMANTINE 10 MG TABLET. PO SCH ×2 (09:00→19:36)
[2018-08-13] MEDS: MULTIVITAMIN with MINERAL TABLET. PO SCH (09:00)
[2018-08-13] MEDS: QUEtiapine 25 MG TABLET. PO SCH (09:00)
[2018-08-13] MEDS: POLYETHYLENE GLYCOL 3350 17 GM PACKET. PO SCH (09:00)
[2018-08-13] MEDS: SERTRALINE 50 MG TABLET. PO SCH (09:00)
[2018-08-13] MEDS: DONEPEZIL HCL 10 MG TABLET PO SCH (09:00)
[2018-08-13] MEDS: DIVALPROEX 125 MG CAP.SPRINK PO SCH ×3 (09:00→19:36)
[2018-08-13] MEDS: CHOLECALCIFEROL (VITAMIN D3) 1,000 UNIT TABLET PO SCH (09:00)
[2018-08-13 11:10] VITALS: BP 185/82
[2018-08-13] MEDS: FUROSEMIDE 40 MG TABLET PO SCH ×2 (12:08→17:41)
[2018-08-13] MEDS: LORazepam 2 MG/ML VIAL IM SCH (13:11)
[2018-08-13] MEDS: HALOPERIDOL LACT 5 MG/ML VIAL. IM SCH (13:12)
[2018-08-13 15:45] VITALS: BP 184/79
[2018-08-13] MEDS: traZODone 100 MG TABLET. PO SCH (19:36)
[2018-08-13] MEDS: MIRTAZAPINE 15 MG TABLET PO SCH (19:36)
[2018-08-13] MEDS: QUEtiapine 50 MG TABLET. PO SCH (19:36)
--- NOTE | 2018-08-13 21:15 | PN ---
DATE: 08/13/2018 SUBJECTIVE: The patient was seen today, met with the staff, chart reviewed. The patient continues to have behavior problems, verbally abusive, yelling, increased agitation and also combative with the staff. OBSERVATION: VITAL SIGNS: Temperature 97.8, blood pressure is 188/92, pulse 87, respirations 20, O2 sat 99%. Slept about 6 hours last night. CURRENT MEDICATIONS: The patient's medications reviewed and also the labs. The patient has also exhibiting significant cognitive deficits, psychotic behavior and also paranoia and chronic medical issues. The patient's medications reviewed. The patient's Seroquel to be increased to 25 mg b.i.d. and 100 mg at night, Zoloft to be decreased to 25 mg daily. IMPRESSION: Major neurocognitive disorder, Alzheimer's, vascular with delusions, depression and behavioral disturbances. OLIVE COOK MD DR: MOISES/joe JOB#: [id number] / [id number]
--- NOTE | 2018-08-13 22:21 | PN ---
DATE: 08/12/2018 This is a late entry for 08/12/2018 covers elements not covered in my initial note. SUBJECTIVE: I met with the patient in the evening. The patient has had a very difficult day with marked mood lability, psychosis, agitation. He slept 7-1/2 hours previous night, slept 10 in the morning, agitated, combative, kicking, pinching, scratching staff, broke his fingernail while he was fighting with staff for no reason and had a wound on his knuckle area with the same incident. REVIEW OF SYSTEMS: Ambulation impaired, in wheelchair. No CV, , pulmonary, eye, ENT system symptoms on review. MENTAL STATUS EXAM: Oriented to himself. Insight, judgment, recent and remote memory, attention, concentration, fund of knowledge poor, consistent with his diagnosis mentioned in my initial note. IMPRESSION: Major neurocognitive disorder, Alzheimer, vascular with delusion, depression, behavioral disturbance; anxiety disorder, unspecified; impulse control disorder, unspecified. PLAN: We will go ahead and check a UA, rule out urinary tract infection causing the increased agitation. Increase Seroquel from 25 mg b.i.d. and 75 mg at bedtime to 37.5 mg 3 times a day. Maintain 75 mg p.o. at bedtime. Rest unchanged. Valproic acid level therapeutic at 53. MAN Jean SOTO MD DR: GABRIEL/joe JOB#: [id number] / [id number]
[2018-08-14] MEDS: LEVOTHYROXINE 50 MCG TABLET PO SCH (05:38)
[2018-08-14] MEDS: HALOPERIDOL LACT 5 MG/ML VIAL. IM SCH (09:00)
[2018-08-14] MEDS: hydrALAZINE 25 MG TABLET PO SCH ×3 (09:00→22:02)
[2018-08-14] MEDS: LORazepam 2 MG/ML VIAL IM SCH (09:00)
[2018-08-14] MEDS: DONEPEZIL HCL 10 MG TABLET PO SCH (09:00)
[2018-08-14] MEDS: FUROSEMIDE 40 MG TABLET PO SCH ×2 (09:00→16:50)
[2018-08-14] MEDS: MULTIVITAMIN with MINERAL TABLET. PO SCH (09:00)
[2018-08-14] MEDS: MEMANTINE 10 MG TABLET. PO SCH ×2 (09:00→22:01)
[2018-08-14] MEDS: METOPROLOL SUCC 24HR ER 25 MG TAB.ER.24H. PO SCH (09:00)
[2018-08-14] MEDS: CHOLECALCIFEROL (VITAMIN D3) 1,000 UNIT TABLET PO SCH (09:00)
[2018-08-14] MEDS: ASPIRIN 81 MG TAB.CHEW PO SCH (09:24)
[2018-08-14] MEDS: POLYETHYLENE GLYCOL 3350 17 GM PACKET. PO SCH (09:25)
[2018-08-14] MEDS: DIVALPROEX 125 MG CAP.SPRINK PO SCH ×3 (09:25→22:00)
[2018-08-14] MEDS: QUEtiapine 25 MG TABLET. PO SCH ×2 (09:26→14:00)
[2018-08-14] MEDS: SERTRALINE 50 MG TABLET. PO SCH (09:26)
[2018-08-14 12:18] VITALS: BP 126/56
[2018-08-14 16:35] VITALS: BP 145/66
--- NOTE | 2018-08-14 20:20 | PN ---
DATE: 08/14/2018 SUBJECTIVE: The patient was seen today, chart reviewed. The patient continues to have problems with behaviors, verbally abusive, agitation. The patient can be delusional and paranoid. The patient's Seroquel was increased yesterday to 25 mg b.i.d. and 100 mg at night. OBSERVATION: VITAL SIGNS: The patient refused vital signs. The patient slept about 9 hours last night. His appetite is fair. The patient is not having any side effects to the medications. ASSESSMENT: Major neurocognitive disorder, Alzheimer's, vascular with delusions, depression and behavioral disturbances. PLAN: To continue with the treatment. OLIVE COOK MD DR: MOISES/joe JOB#: [id number] / [id number]
[2018-08-14] MEDS: QUEtiapine 50 MG TABLET. PO SCH (22:00)
[2018-08-14] MEDS: traZODone 100 MG TABLET. PO SCH (22:00)
[2018-08-14] MEDS: MIRTAZAPINE 15 MG TABLET PO SCH (22:02)
[2018-08-15] MEDS: LEVOTHYROXINE 50 MCG TABLET PO SCH (04:42)
[2018-08-15 06:06] VITALS: BP 136/69
[2018-08-15 07:49] LABS: BASO # 0.1 x10^3/uL (0.0-0.2); BASO % 1 % (0-3); EOS % 0 % (0-3); HEMATOCRIT 34.5 % (39.0-53.0); HEMOGLOBIN 11.5 g/dL (13.0-17.5); LYMPH # 2.7 x10^3/uL (1.0-4.8); LYMPH % 25 % (24-48); MEAN CORPUSCULAR HEMOGLOBIN 32 pg (25-35); MEAN CORPUSCULAR HGB CONC 34 g/dL (31-37); MEAN CORPUSCULAR VOLUME 96 fL (79-100); MONO # 1.3 x10^3/uL (0.0-1.1); MONO % 12 % (0-9); NEUT # 6.6 x10^3uL (1.8-7.7); NEUT % 62 % (31-73); PLATELET COUNT 248 x10^3/uL (140-400); RED BLOOD COUNT 3.58 x10^6/uL (4.30-5.70); WHITE BLOOD COUNT 10.6 x10^3/uL (4.0-11.0)
[2018-08-15 07:57] LABS: ALBUMIN 2.5 g/dL (3.4-5.0); ALBUMIN/GLOBULIN RATIO 0.6 (1.0-1.7); CALCIUM 8.6 mg/dL (8.5-10.1); CREATININE 1.9 mg/dL (0.7-1.3); GFR 33.5; POTASSIUM 3.8 mmol/L (3.5-5.1); TOTAL BILIRUBIN 0.4 mg/dL (0.2-1.0); TOTAL PROTEIN 6.9 g/dL (6.4-8.2)
[2018-08-15 08:53] LABS: SEDIMENTATION RATE 73 (0-15)
[2018-08-15] MEDS: MULTIVITAMIN with MINERAL TABLET. PO SCH (09:00)
[2018-08-15] MEDS: CHOLECALCIFEROL (VITAMIN D3) 1,000 UNIT TABLET PO SCH (09:00)
[2018-08-15] MEDS: DONEPEZIL HCL 10 MG TABLET PO SCH (09:00)
[2018-08-15] MEDS: hydrALAZINE 25 MG TABLET PO SCH ×3 (09:00→21:05)
[2018-08-15] MEDS: METOPROLOL SUCC 24HR ER 25 MG TAB.ER.24H. PO SCH (09:00)
[2018-08-15] MEDS: MEMANTINE 10 MG TABLET. PO SCH ×2 (09:00→21:06)
[2018-08-15] MEDS: ASPIRIN 81 MG TAB.CHEW PO SCH (09:19)
[2018-08-15] MEDS: FUROSEMIDE 40 MG TABLET PO SCH ×2 (09:20→14:55)
[2018-08-15] MEDS: POLYETHYLENE GLYCOL 3350 17 GM PACKET. PO SCH (09:20)
[2018-08-15] MEDS: LACTOBACILLUS RHAMNOSUS GG 1 CAPSULE. PO SCH ×2 (09:20→21:06)
[2018-08-15] MEDS: DIVALPROEX 125 MG CAP.SPRINK PO SCH ×3 (09:20→21:06)
[2018-08-15] MEDS: DOXYCYCLINE HYCLATE 100 MG TABLET PO SCH ×2 (09:21→21:05)
[2018-08-15] MEDS: QUEtiapine 25 MG TABLET. PO SCH ×2 (09:21→14:55)
[2018-08-15] MEDS: SERTRALINE 50 MG TABLET. PO SCH (09:21)
[2018-08-15 14:13] VITALS: BP 150/80
[2018-08-15] MEDS: MIRTAZAPINE 15 MG TABLET PO SCH (21:05)
[2018-08-15] MEDS: QUEtiapine 50 MG TABLET. PO SCH (21:06)
[2018-08-15] MEDS: traZODone 100 MG TABLET. PO SCH (21:10)
--- NOTE | 2018-08-16 00:17 | PN ---
DATE: 08/15/2018 SUBJECTIVE: The patient was seen today. I met with the staff, chart reviewed. The patient is still confused, verbally abusive at times. Otherwise, no major change in his behavior. OBSERVATION: VITAL SIGNS: Temperature 97.6, blood pressure 136/69, pulse 106, respiration 18, O2 sat 97%. Slept about 7 hours last night. The patient's medications reviewed. The patient is not having any side effects. No major medical issues. ASSESSMENT: Major neurocognitive disorder, Alzheimer's, vascular with delusions, depression, and behavioral disturbances. PLAN: To continue with the treatment. OLIVE COOK MD DR: MOISES/joe JOB#: [id number] / [id number]
[2018-08-16 05:50] VITALS: BP 163/84
[2018-08-16] MEDS: LEVOTHYROXINE 50 MCG TABLET PO SCH (06:14)
[2018-08-16] MEDS: HALOPERIDOL LACT 5 MG/ML VIAL. IM SCH ×2 (08:45→09:00)
[2018-08-16] MEDS: LORazepam 2 MG/ML VIAL IM SCH ×2 (08:45→09:00)
[2018-08-16] MEDS: ASPIRIN 81 MG TAB.CHEW PO SCH (08:45)
[2018-08-16] MEDS: DONEPEZIL HCL 10 MG TABLET PO SCH (08:46)
[2018-08-16] MEDS: LACTOBACILLUS RHAMNOSUS GG 1 CAPSULE. PO SCH ×4 (08:46→21:00)
[2018-08-16] MEDS: DIVALPROEX 125 MG CAP.SPRINK PO SCH ×5 (08:46→21:00)
[2018-08-16] MEDS: hydrALAZINE 25 MG TABLET PO SCH ×6 (08:46→21:00)
[2018-08-16] MEDS: FUROSEMIDE 40 MG TABLET PO SCH ×3 (08:47→15:30)
[2018-08-16] MEDS: POLYETHYLENE GLYCOL 3350 17 GM PACKET. PO SCH (08:47)
[2018-08-16] MEDS: MEMANTINE 10 MG TABLET. PO SCH ×3 (08:47→21:00)
[2018-08-16] MEDS: QUEtiapine 25 MG TABLET. PO SCH ×3 (08:47→13:38)
[2018-08-16] MEDS: MULTIVITAMIN with MINERAL TABLET. PO SCH (08:48)
[2018-08-16] MEDS: CHOLECALCIFEROL (VITAMIN D3) 1,000 UNIT TABLET PO SCH (08:48)
[2018-08-16] MEDS: METOPROLOL SUCC 24HR ER 25 MG TAB.ER.24H. PO SCH (08:48)
[2018-08-16] MEDS: DOXYCYCLINE HYCLATE 100 MG TABLET PO SCH ×3 (08:48→21:00)
[2018-08-16] MEDS: SERTRALINE 50 MG TABLET. PO SCH (08:49)
[2018-08-16 16:25] VITALS: BP 176/77
[2018-08-16] MEDS: QUEtiapine 50 MG TABLET. PO SCH ×2 (20:44→21:00)
[2018-08-16] MEDS: MIRTAZAPINE 15 MG TABLET PO SCH ×2 (20:44→21:00)
[2018-08-16] MEDS: traZODone 100 MG TABLET. PO SCH ×2 (20:44→21:00)
[2018-08-16 21:38] VITALS: BP 138/78
--- NOTE | 2018-08-17 00:45 | PN ---
DATE: 08/16/2018 SUBJECTIVE: The patient was seen today, met with the staff, chart reviewed. The patient's behavior remains the same, withdrawn, needing assistance with ADLs, mostly noncommunicative. The patient is also having fluctuating mood. Also, the patient tends to sleep a lot during the daytime. OBSERVATION: VITAL SIGNS: DICTATION ENDS HERE OLIVE COOK MD DR: MOISES/joe JOB#: [id number] / [id number]
[2018-08-17 05:58] VITALS: BP 121/91
[2018-08-17] MEDS: LEVOTHYROXINE 50 MCG TABLET PO SCH (08:30)
[2018-08-17] MEDS: ASPIRIN 81 MG TAB.CHEW PO SCH (08:30)
[2018-08-17] MEDS: hydrALAZINE 25 MG TABLET PO SCH ×3 (08:34→21:00)
[2018-08-17] MEDS: LACTOBACILLUS RHAMNOSUS GG 1 CAPSULE. PO SCH ×2 (08:35→21:00)
[2018-08-17] MEDS: METOPROLOL SUCC 24HR ER 25 MG TAB.ER.24H. PO SCH (08:35)
[2018-08-17] MEDS: QUEtiapine 25 MG TABLET. PO SCH ×2 (08:35→15:26)
[2018-08-17] MEDS: FUROSEMIDE 40 MG TABLET PO SCH ×2 (08:35→15:26)
[2018-08-17] MEDS: POLYETHYLENE GLYCOL 3350 17 GM PACKET. PO SCH (08:36)
[2018-08-17] MEDS: SERTRALINE 50 MG TABLET. PO SCH (08:36)
[2018-08-17] MEDS: DOXYCYCLINE HYCLATE 100 MG TABLET PO SCH ×2 (08:36→21:05)
[2018-08-17] MEDS: DIVALPROEX 125 MG CAP.SPRINK PO SCH ×3 (08:36→21:05)
[2018-08-17] MEDS: MULTIVITAMIN with MINERAL TABLET. PO SCH (09:00)
[2018-08-17] MEDS: MEMANTINE 10 MG TABLET. PO SCH ×2 (09:00→21:00)
[2018-08-17] MEDS: CHOLECALCIFEROL (VITAMIN D3) 1,000 UNIT TABLET PO SCH (09:00)
[2018-08-17] MEDS: DONEPEZIL HCL 10 MG TABLET PO SCH (09:00)
[2018-08-17 16:16] VITALS: BP 151/64
[2018-08-17] MEDS: LORazepam 2 MG/ML VIAL IM SCH (19:59)
[2018-08-17] MEDS: HALOPERIDOL LACT 5 MG/ML VIAL. IM SCH (20:00)
[2018-08-17] MEDS: traZODone 100 MG TABLET. PO SCH (21:05)
[2018-08-17] MEDS: MIRTAZAPINE 15 MG TABLET PO SCH (21:05)
[2018-08-17] MEDS: QUEtiapine 50 MG TABLET. PO SCH (21:07)
--- NOTE | 2018-08-18 02:47 | PN ---
DATE: 08/17/2018 SUBJECTIVE: The patient was seen today, met with the staff, chart reviewed. The patient still withdrawn, noncommunicative most of the time, has periods where he gets agitated easily during ADLs. Staff reports that he has some improvement today and he was able to talk to one of the staff and not getting angry, upset. OBSERVATION: VITAL SIGNS: Blood pressure 121/91, pulse 75, respirations 20, O2 sat 94%. Slept about 7 hours last night. Repeat patient's lab reviewed and also his medications and not having side effects. ASSESSMENT: Major neurocognitive disorder, Alzheimer's, vascular with delusions, depression, and behavioral disturbances. PLAN: Continue with treatment. OLIVE COOK MD DR: MOISES/joe JOB#: [id number] / [id number]
[2018-08-18] MEDS: LEVOTHYROXINE 50 MCG TABLET PO SCH (05:25)
[2018-08-18 05:59] VITALS: BP 190/84
[2018-08-18] MEDS: hydrALAZINE 25 MG TABLET PO SCH ×3 (06:30→17:17)
--- NOTE | 2018-08-18 06:58 | RAD ---
Examination: PORTABLE CHEST 1V History: productive cough, weakness, Comparison/Correlation: None Findings: Portable upright frontal view of the chest was obtained. Heart size and pulmonary vasculature are normal. Calcified granulomas are present. No pneumothorax or infiltrate. No definite pleural effusion. Bony structures are unremarkable for the patient's age. Impression: No active disease. Electronically signed by: John James MD (08/18/2018 6:54 AM) [facility] [id number]
[2018-08-18] MEDS: ASPIRIN 81 MG TAB.CHEW PO SCH (08:23)
[2018-08-18] MEDS: LORazepam 2 MG/ML VIAL IM SCH (08:23)
[2018-08-18] MEDS: DONEPEZIL HCL 10 MG TABLET PO SCH (08:23)
[2018-08-18] MEDS: HALOPERIDOL LACT 5 MG/ML VIAL. IM SCH (08:23)
[2018-08-18] MEDS: DIVALPROEX 125 MG CAP.SPRINK PO SCH ×3 (08:24→20:21)
[2018-08-18] MEDS: FUROSEMIDE 40 MG TABLET PO SCH ×2 (08:24→15:39)
[2018-08-18] MEDS: POLYETHYLENE GLYCOL 3350 17 GM PACKET. PO SCH (08:24)
[2018-08-18] MEDS: LACTOBACILLUS RHAMNOSUS GG 1 CAPSULE. PO SCH ×2 (08:24→20:21)
[2018-08-18] MEDS: MEMANTINE 10 MG TABLET. PO SCH ×2 (08:25→20:22)
[2018-08-18] MEDS: QUEtiapine 25 MG TABLET. PO SCH (08:25)
[2018-08-18] MEDS: MULTIVITAMIN with MINERAL TABLET. PO SCH (08:25)
[2018-08-18] MEDS: DOXYCYCLINE HYCLATE 100 MG TABLET PO SCH ×2 (08:26→20:23)
[2018-08-18] MEDS: METOPROLOL SUCC 24HR ER 25 MG TAB.ER.24H. PO SCH (08:26)
[2018-08-18] MEDS: CHOLECALCIFEROL (VITAMIN D3) 1,000 UNIT TABLET PO SCH (08:26)
[2018-08-18] MEDS: SERTRALINE 50 MG TABLET. PO SCH (08:27)
[2018-08-18 13:22] LABS: BASO # 0.1 x10^3/uL (0.0-0.2); BASO % 1 % (0-3); EOS % 0 % (0-3); HEMATOCRIT 33.9 % (39.0-53.0); HEMOGLOBIN 11.2 g/dL (13.0-17.5); LYMPH # 2.5 x10^3/uL (1.0-4.8); LYMPH % 31 % (24-48); MEAN CORPUSCULAR HEMOGLOBIN 32 pg (25-35); MEAN CORPUSCULAR HGB CONC 33 g/dL (31-37); MEAN CORPUSCULAR VOLUME 98 fL (79-100); MONO # 0.8 x10^3/uL (0.0-1.1); MONO % 10 % (0-9); NEUT # 4.5 x10^3uL (1.8-7.7); NEUT % 58 % (31-73); PLATELET COUNT 203 x10^3/uL (140-400); RED BLOOD COUNT 3.47 x10^6/uL (4.30-5.70); RED CELL DISTRIBUTION WIDTH 15.3 % (11.5-14.5); WHITE BLOOD COUNT 7.8 x10^3/uL (4.0-11.0)
[2018-08-18 13:28] LABS: ALBUMIN 2.3 g/dL (3.4-5.0); ALBUMIN/GLOBULIN RATIO 0.6 (1.0-1.7); CALCIUM 8.5 mg/dL (8.5-10.1); CREATININE 1.8 mg/dL (0.7-1.3); GFR 35.7; POTASSIUM 3.8 mmol/L (3.5-5.1); TOTAL BILIRUBIN 0.4 mg/dL (0.2-1.0); TOTAL PROTEIN 6.4 g/dL (6.4-8.2)
[2018-08-18 16:38] VITALS: BP 165/64
--- NOTE | 2018-08-18 18:48 | PN ---
DATE: 08/18/2018 SUBJECTIVE: The patient was seen today, met with the staff, chart reviewed. The patient's behavior remains the same. The patient is needing total assistance with ADLs. The patient is not exhibiting any major behavior problems except for resistive to care. Occasional combative behaviors. OBSERVATION: VITAL SIGNS: Temperature 98.2, blood pressure 190/84, pulse 86, respirations 22. GENERAL: Slept about 7 hours last night. The patient's appetite is fair. MEDICATIONS: Reviewed. No side effects. The patient's lab reviewed. ASSESSMENT: Major neurocognitive disorder, Alzheimer's, vascular with delusions, depression, and behavioral disturbances. PLAN: Continue with the treatment. OLIVE COOK MD DR: MOISES/joe JOB#: [id number] / [id number]
[2018-08-18] MEDS: traZODone 100 MG TABLET. PO SCH (20:22)
[2018-08-18] MEDS: MIRTAZAPINE 15 MG TABLET PO SCH (20:22)
[2018-08-18] MEDS: QUEtiapine 50 MG TABLET. PO SCH (20:23)
[2018-08-19] MEDS: LEVOTHYROXINE 50 MCG TABLET PO SCH (05:40)
[2018-08-19 06:38] VITALS: BP 187/84
[2018-08-19] MEDS: CHOLECALCIFEROL (VITAMIN D3) 1,000 UNIT TABLET PO SCH (09:21)
[2018-08-19] MEDS: hydrALAZINE 25 MG TABLET PO SCH ×3 (09:22→20:54)
[2018-08-19] MEDS: DONEPEZIL HCL 10 MG TABLET PO SCH (09:22)
[2018-08-19] MEDS: MEMANTINE 10 MG TABLET. PO SCH ×2 (09:23→20:54)
[2018-08-19] MEDS: FUROSEMIDE 40 MG TABLET PO SCH ×2 (09:23→16:59)
[2018-08-19] MEDS: SERTRALINE 50 MG TABLET. PO SCH (09:23)
[2018-08-19] MEDS: DOXYCYCLINE HYCLATE 100 MG TABLET PO SCH ×2 (09:23→20:55)
[2018-08-19] MEDS: METOPROLOL SUCC 24HR ER 25 MG TAB.ER.24H. PO SCH (09:23)
[2018-08-19] MEDS: MULTIVITAMIN with MINERAL TABLET. PO SCH (09:24)
[2018-08-19] MEDS: LACTOBACILLUS RHAMNOSUS GG 1 CAPSULE. PO SCH ×2 (09:24→20:54)
[2018-08-19] MEDS: DIVALPROEX 125 MG CAP.SPRINK PO SCH ×3 (09:24→20:54)
[2018-08-19] MEDS: POLYETHYLENE GLYCOL 3350 17 GM PACKET. PO SCH (09:24)
[2018-08-19] MEDS: ASPIRIN 81 MG TAB.CHEW PO SCH (09:24)
[2018-08-19] MEDS: LORazepam 2 MG/ML VIAL IM SCH (09:26)
[2018-08-19] MEDS: HALOPERIDOL LACT 5 MG/ML VIAL. IM SCH (09:26)
[2018-08-19 16:03] VITALS: BP 142/78
[2018-08-19] MEDS: QUEtiapine 50 MG TABLET. PO SCH (20:54)
[2018-08-19] MEDS: MIRTAZAPINE 15 MG TABLET PO SCH (20:54)
[2018-08-19] MEDS: traZODone 100 MG TABLET. PO SCH (20:54)
--- NOTE | 2018-08-19 21:39 | PN ---
DATE: 08/19/2018 SUBJECTIVE: The patient was seen today, met with the staff, chart reviewed. The patient continues to present with behavior problems, unpredictable behaviors, hitting the staff. The patient is resistive to ADLs. The patient is most of the time non-communicative, occasionally holds a brief conversation with the staff. OBSERVATION: VITAL SIGNS: Temperature 98, blood pressure 142/78, pulse 64, respirations 16, O2 sat 96%. Slept about 8 hours last night. CURRENT MEDICATIONS: The patient's medications reviewed. The patient is not having any side effects. LABORATORY DATA: Reviewed. ASSESSMENT: Major neurocognitive disorder, Alzheimer's, vascular with delusions, depression, behavioral disturbances. PLAN: Continue with treatment. OLIVE COOK MD DR: MOISES/joe JOB#: [id number] / [id number]
[2018-08-20 05:15] VITALS: BP 145/81
[2018-08-20] MEDS: LEVOTHYROXINE 50 MCG TABLET PO SCH (05:26)
[2018-08-20] MEDS: LORazepam 2 MG/ML VIAL IM SCH (08:21)
[2018-08-20] MEDS: ASPIRIN 81 MG TAB.CHEW PO SCH (08:21)
[2018-08-20] MEDS: HALOPERIDOL LACT 5 MG/ML VIAL. IM SCH (08:21)
[2018-08-20] MEDS: hydrALAZINE 25 MG TABLET PO SCH ×3 (08:22→18:05)
[2018-08-20] MEDS: LACTOBACILLUS RHAMNOSUS GG 1 CAPSULE. PO SCH ×2 (08:22→19:48)
[2018-08-20] MEDS: DONEPEZIL HCL 10 MG TABLET PO SCH (08:22)
[2018-08-20] MEDS: FUROSEMIDE 40 MG TABLET PO SCH ×2 (08:23→15:52)
[2018-08-20] MEDS: POLYETHYLENE GLYCOL 3350 17 GM PACKET. PO SCH (08:23)
[2018-08-20] MEDS: DIVALPROEX 125 MG CAP.SPRINK PO SCH ×3 (08:23→19:49)
[2018-08-20] MEDS: MULTIVITAMIN with MINERAL TABLET. PO SCH (08:23)
[2018-08-20] MEDS: MEMANTINE 10 MG TABLET. PO SCH ×2 (08:23→19:49)
[2018-08-20] MEDS: SERTRALINE 50 MG TABLET. PO SCH (08:24)
[2018-08-20] MEDS: DOXYCYCLINE HYCLATE 100 MG TABLET PO SCH ×2 (08:24→19:49)
[2018-08-20] MEDS: CHOLECALCIFEROL (VITAMIN D3) 1,000 UNIT TABLET PO SCH (08:24)
[2018-08-20] MEDS: METOPROLOL SUCC 24HR ER 25 MG TAB.ER.24H. PO SCH (08:24)
[2018-08-20] MEDS ORDERED: cloNIDine TTS-3 1 PATCH PATCH TD SCH (09:00)
[2018-08-20 13:45] VITALS: BP 164/84
[2018-08-20 16:11] VITALS: BP 165/70
[2018-08-20] MEDS: traZODone 100 MG TABLET. PO SCH (19:49)
[2018-08-20] MEDS: QUEtiapine 50 MG TABLET. PO SCH (19:49)
[2018-08-20] MEDS: MIRTAZAPINE 15 MG TABLET PO SCH (19:49)
[2018-08-21 05:49] VITALS: BP 145/67
[2018-08-21] MEDS: LEVOTHYROXINE 50 MCG TABLET PO SCH (05:52)
[2018-08-21] MEDS: ASPIRIN 81 MG TAB.CHEW PO SCH (08:06)
[2018-08-21] MEDS: hydrALAZINE 25 MG TABLET PO SCH (08:07)
[2018-08-21] MEDS: DIVALPROEX 125 MG CAP.SPRINK PO SCH (08:07)
[2018-08-21] MEDS: FUROSEMIDE 40 MG TABLET PO SCH (08:07)
[2018-08-21 08:08] VITALS: BP 145/67
[2018-08-21] MEDS: METOPROLOL SUCC 24HR ER 25 MG TAB.ER.24H. PO SCH (08:08)
[2018-08-21] MEDS: DOXYCYCLINE HYCLATE 100 MG TABLET PO SCH (08:08)
[2018-08-21] MEDS: SERTRALINE 50 MG TABLET. PO SCH (08:08)
[2018-08-21] MEDS: POLYETHYLENE GLYCOL 3350 17 GM PACKET. PO SCH (08:08)
[2018-08-21] MEDS: DONEPEZIL HCL 10 MG TABLET PO SCH (09:00)
[2018-08-21] MEDS: MEMANTINE 10 MG TABLET. PO SCH (09:00)
[2018-08-21] MEDS: CHOLECALCIFEROL (VITAMIN D3) 1,000 UNIT TABLET PO SCH (09:00)
[2018-08-21] MEDS: LACTOBACILLUS RHAMNOSUS GG 1 CAPSULE. PO SCH (09:00)
[2018-08-21] MEDS: MULTIVITAMIN with MINERAL TABLET. PO SCH (09:00)
[2018-08-21 09:28] LABS: BASO % 1 % (0-3); EOS % 0 % (0-3); HEMATOCRIT 36.4 % (39.0-53.0); HEMOGLOBIN 11.7 g/dL (13.0-17.5); LYMPH % 20 % (24-48); MEAN CORPUSCULAR HEMOGLOBIN 32 pg (25-35); MEAN CORPUSCULAR HGB CONC 32 g/dL (31-37); MEAN CORPUSCULAR VOLUME 100 fL (79-100); MONO # 1.1 x10^3/uL (0.0-1.1); MONO % 11 % (0-9); NEUT # 7.1 x10^3uL (1.8-7.7); NEUT % 69 % (31-73); PLATELET COUNT 211 x10^3/uL (140-400); RED BLOOD COUNT 3.65 x10^6/uL (4.30-5.70); RED CELL DISTRIBUTION WIDTH 16.4 % (11.5-14.5); WHITE BLOOD COUNT 10.3 x10^3/uL (4.0-11.0)
[2018-08-21 09:41] LABS: ALBUMIN 2.7 g/dL (3.4-5.0); ALBUMIN/GLOBULIN RATIO 0.6 (1.0-1.7); CALCIUM 8.8 mg/dL (8.5-10.1); CREATININE 2.3 mg/dL (0.7-1.3); GFR 26.9; POTASSIUM 3.7 mmol/L (3.5-5.1); TOTAL BILIRUBIN 0.5 mg/dL (0.2-1.0); TOTAL PROTEIN 7.2 g/dL (6.4-8.2)
[2018-08-21] MEDS ORDERED: DOXY100C2 PO (10:20)
[2018-08-21] MEDS ORDERED: FURO40TA4 PO (10:24)
[2018-08-21] MEDS ORDERED: LACT1CAP19 PO (10:25)
[2018-08-21] MEDS ORDERED: MAG355OR17 PO (10:26)
[2018-08-21] MEDS ORDERED: MAGN2400 PO (10:27)
[2018-08-21] MEDS ORDERED: CLON1PAT3 TD (10:28)
[2018-08-21] MEDS ORDERED: HYDR-2869 PO (10:29)
[2018-08-21] MEDS ORDERED: DONE10TA61 PO (10:32)
[2018-08-21] MEDS ORDERED: HALO5VIA2 IJ (10:33)
[2018-08-21] MEDS ORDERED: LORA2DIS2 IJ (10:35)
[2018-08-21] MEDS ORDERED: MEMA10TA PO (10:36)
[2018-08-21] MEDS ORDERED: MIRT15TA PO (10:36)
[2018-08-21] MEDS ORDERED: OLAN5TAB5 PO (10:38)
[2018-08-21] MEDS ORDERED: SERT25TA PO (10:39)
[2018-08-21] MEDS ORDERED: TRAZ-86 PO ×2 (10:40→10:41)
--- NOTE | 2018-08-21 15:11 | DS ---
DATE OF DISCHARGE: 08/21/2018 FINAL DIAGNOSES: AXIS I: 1. Major neurocognitive disorder, Alzheimer's, vascular with delusions, depression and behavioral disturbances. 2. Anxiety disorder, unspecified. 3. Impulse control disorder, unspecified. AXIS II: None. AXIS III: Hypertension, hyperlipidemia, chronic kidney disease stage 3, anemia, chronic constipation, recent hypernatremia. REASON FOR ADMISSION: This 88-year-old male was [facility] and referred by Dr. Gunderson and his primary care doctor, Dr. Jones. The patient's behavior has worsened, increasingly confused, combative with the staff, hitting residents and staff, also aggressive, disruptive behavior, also verbally abusive, constantly yelling, not manageable at this facility by the staff. The patient failed outpatient treatment. HISTORY OF PRESENT ILLNESS: The patient has a history of dementia. He has been a resident at the above facility for sometime, but his behavior gotten worse including increased agitation, decreased sleep, decreased appetite, aggression, paranoia, and also mood swings. HOSPITAL COURSE: The patient had a physical exam, routine lab work including CBC, chem profile, and urinalysis. The patient's hemoglobin was 11.7, RBC 3.65. The patient's blood glucose fluctuated slightly high. The patient's sodium was gradually increased levels on 08/15/2018, it was 145; on 08/18/2018, it was 151 and on 08/21/2018, went up to 157. The patient's carbon dioxide is 34. The patient's chloride level was 114. BUN 55 and creatinine 2.3. The patient's AST was 75. The patient was seen by Dr. Cutler and did further transferred to the medical floor because of the abnormal lab values and the patient's mental status remains the same. The patient was treated with Seroquel 150 mg at night, Zoloft 25 mg daily, Haldol 5 mg daily, trazodone 100 mg at night, mirtazapine 15 mg at night, Aricept 10 mg daily, Namenda 10 mg b.i.d., was also on Depakote 250 mg t.i.d. ____ levothyroxine 50 mcg daily, melatonin 3 mg at night p.r.n. DISCHARGE PLANS: The patient was transferred to the medical floor for further observation and treatment because of the significant increase in this patient's sodium level was 157 and also increasing in BUN and creatinine levels. OLIVE COOK MD DR: MOISES/joe JOB#: [id number] / [id number]
== END 2018-08-21 11:17 | disposition short-term general hospital (02) | DRG 57 ==
LOC: ER 21:23 → GEROPSY 23:17
PROVIDERS: ADMIT Psychiatry & Neurology Psychiatry; ATTEND Psychiatry & Neurology Psychiatry
DX: G30.9 Alzheimer's disease, unspecified (principal); F02.81 Dementia in other diseases classified elsewhere, unspecified severity, with behavioral disturbance; F01.51 Vascular dementia, unspecified severity, with behavioral disturbance; E78.00 Pure hypercholesterolemia, unspecified; E78.5 Hyperlipidemia, unspecified; D64.9 Anemia, unspecified; F32.9 Major depressive disorder, single episode, unspecified; F41.9 Anxiety disorder, unspecified; Z66 Do not resuscitate; N18.3 Chronic kidney disease, stage 3 (moderate); K21.9 Gastro-esophageal reflux disease without esophagitis; K59.09 Other constipation; I12.9 Hypertensive chronic kidney disease with stage 1 through stage 4 chronic kidney disease, or unspecified chronic kidney disease; F63.9 Impulse disorder, unspecified; Z79.899 Other long term (current) drug therapy; Z88.8 Allergy status to other drugs, medicaments and biological substances
CPT/HCPCS: 36415; 71045; 80048; 80053; 80061; 80076; 80164; 81001; 82306; 82607; 83036; 83735; 84436; 84439; 84443; 84480; 85025; 85651; 86592; 87070; 87205; 93005; J1630; J2060; P9612; 97116; 99285-25

== ENCOUNTER 2018-08-21 12:12 | Inpatient (IN) | payer MEDICARE, OTHER ==
[~2018-08-21] VITALS: Ht 182.9 cm; Wt 83.6 kg
[~2018-08-21 12:12] MED LIST: ACET325T9 PO; ASPI81TA50 PO; BISA5TAB4 PO; CHOL10003 PO; CLON0.1T PO; CLON1PAT3 TD; DIVA125C2 PO; DONE10TA61 PO; DOXY100C2 PO; FURO40TA4 PO; HALO5VIA2 IJ; HYDR-2869 PO; LACT1CAP19 PO; LEVO50TA5 PO; LORA2DIS2 IJ; MAG355OR17 PO; MAGN2400 PO; MELA3TAB2 PO; MEMA10TA PO; MEMA1CAP3 PO; METO-239 PO; MIRT15TA PO; MULT1TAB52 PO; OLAN5TAB5 PO; POLY17PO5 PO; QUET25TA PO; QUET25TA5 PO; QUET50TA5 PO; SERT25TA PO; TRAZ-86 PO
[2018-08-21] MEDS ORDERED: BISACODYL TAB 5 MG TABLET.DR. PO PRN (12:45)
[2018-08-21] MEDS ORDERED: ACETAMINOPHEN 325 MG TABLET PO PRN (12:45)
[2018-08-21] MEDS: IV DEXTROSE 5% 1,000 ML IV SCH ×2 (12:45→21:33)
[2018-08-21] MEDS ORDERED: MELATONIN 3 MG TABLET PO PRN (13:00)
[2018-08-21] MEDS ORDERED: MAG HYDROX/AL HYDROX/SIMETH 30 ML ORAL.SUSP PO PRN (13:00)
[2018-08-21] MEDS ORDERED: MAGNESIUM HYDROXIDE 2,400 MG/30 ML ORAL.SUSP. PO PRN (13:00)
[2018-08-21 13:20] VITALS: BP 172/75
--- NOTE | 2018-08-21 14:02 | HP ---
ADMIT DATE: 08/21/2018 HISTORY OF PRESENT ILLNESS: The patient is an 88-year-old male patient, who was transferred from [facility] on account of worsening kidney function. His serum sodium has risen to 154 from a normal of 142. His BUN and creatinine has steadily worsened, creatinine has risen from 1.5-2.3 and his BUN has risen from 35-55. The patient's intake is very poor. He does not eat or drink, he spits all his food and drinks. He is very lethargic, although occasionally, he answers questions appropriately. On questioning him, he stated that he is not hungry and does not feel thirsty. He denied any other complaints. The patient is an 88-year-old male patient, a resident at [facility], who was admitted on account of hitting others, verbally abusive, yelling, has increasing agitation, all this with background of dementia with delusion, depression and behavioral disorder. He was admitted to [facility] for inpatient psychiatric stabilization. The nursing staff has consistently were concerned that he is not eating or drinking well and in fact his BUN and creatinine has steadily increased. He also became more lethargic. He did have multiple bruises to his upper extremities. We did actually treat him with doxycycline for bilateral upper extremity cellulitis. PAST MEDICAL HISTORY: Significant for hypertension, hyperlipidemia, chronic kidney disease stage 3, anemia as well as chronic constipation. PAST PSYCHIATRIC HISTORY: Significant for dementia of Alzheimer's type with behavioral disorder, anxiety, paranoia and psychosis. ALLERGIES: HE IS ALLERGIC TO NONSTEROIDAL ANTI-INFLAMMATORY MEDICATION. FAMILY HISTORY: Unremarkable. SOCIAL HISTORY: He is a resident at [facility]. He apparently does not smoke, drink alcohol abuse or do recreational drugs. Since he came to our facility, he is mostly chair bound. MEDICATIONS: He is currently on following medications: He is on doxycycline 100 mg twice a day, Aricept 10 mg once a day, clonidine TTS 1 patch weekly. He is on hydralazine 50 mg 3 times a day, metoprolol succinate 25 mg once a day. He is on aspirin 81 mg once a day, acetaminophen 650 mg once a day, divalproex 250 mg 3 times a day, mirtazapine 15 mg at bedtime, sertraline 25 mg once a day, trazodone 100 mg at bedtime scheduled. He can also have another 100 mg as needed for insomnia, haloperidol lactate 5 mg per 1 mL intramuscularly daily for psychosis, olanzapine 2.5 mg every 2 hours, quetiapine fumarate 150 mg at bedtime, lorazepam 0.5 mg daily, Namenda 10 mg twice a day. He is also on furosemide 40 mg p.o. b.i.d. and Mylanta 15 mL 4 times a day, bisacodyl 10 mg tablet once a day, milk of magnesia 30 mL p.o. daily p.r.n. for constipation, polyethylene glycol for MiraLax 17 mg daily, lactobacillus rhamnosus for Culturelle 1 tablet twice a day, levothyroxine sodium 50 mcg once a day, cholecalciferol for vitamin D3 1000 [employer] unit once a day, multivitamin 1 tablet once a day, and melatonin 3 mg at bedtime. PHYSICAL EXAMINATION: GENERAL: When I examined him, he was resting slightly propped up in bed, in no apparent respiratory distress, slightly pale. No jaundice, cyanosis, or thyromegaly. No jugular venous distension. No lower limb edema. However, both upper extremities are markedly swollen. VITAL SIGNS: His heart rate was 60 beats per minute, blood pressure was 172/75, temperature was 97.4, respiratory rate was 20, and oxygen saturation was 96%. He weighs 183 pounds. HEAD, EYES, EARS, NOSE, AND THROAT Showed normocephalic, atraumatic. NECK: Supple. HEART: Showed normal first and second sounds. No gallop, rub or murmur. CHEST: Clear to auscultation. No crepitation or rhonchi. ABDOMEN: Distended, soft, nontender. No guarding or rigidity. No organomegaly. All hernial orifices intact. Bowel sounds normal. NEUROLOGIC: He was sleepy, but arousable, is very confused, answers some questions appropriately; however, he is mostly lethargic and sleepy. All his cranial nerves are grossly intact. He is able to move his upper extremities to much good extent than lower extremities, mostly chair bound. LABORATORY DATA: As of this morning showed a serum sodium 157, potassium 3.7, chloride 114, bicarbonate 34, anion gap of 9, BUN 55, creatinine 2.3, estimated GFR was 27 mL per minute. His glucose was 115. Hemoglobin A1c was 5.6%. His calcium was 8.8, magnesium 2.4. Total bilirubin, AST, ALT, and alkaline phosphatase were normal. His albumin is only 2.7. His white cell count was 10,300, hemoglobin 11.7, hematocrit 36.4, MCV 100, and platelet count of 111,000 with normal manual differential. IMPRESSION: In summary, this is an 88-year-old male patient, who was transferred from [facility] to [address] [place] [address] because of severe dehydration, acute on chronic kidney injury, hypernatremia, likely multifactorial. He is already on diuretics. He is on 40 mg of Lasix twice a day. He probably also on multiple medications that caused excessive sedation. He is on mirtazapine, sertraline, trazodone, haloperidol, olanzapine and quetiapine as well as lorazepam. PLAN: My plan is to start him on D5W at 100 mL per hour. We will follow him closely. I will hold off on some of his medication. I would consult the psychiatrist, continue following him here. We will repeat his labs on a daily basis. COREY ENGLAND MD DR: GORDY/joe JOB#: [id number] / [id number]
[2018-08-21 15:46] VITALS: BP 155/89
[2018-08-21 19:32] VITALS: BP 160/75
[2018-08-21] MEDS: LACTOBACILLUS RHAMNOSUS GG 1 CAPSULE. PO SCH (21:00)
[2018-08-21 23:15] VITALS: BP 145/67
[2018-08-22 05:55] VITALS: BP 122/69
[2018-08-22] MEDS: IV DEXTROSE 5% 1,000 ML IV SCH (05:58)
[2018-08-22] MEDS ORDERED: LEVOTHYROXINE 50 MCG TABLET PO SCH (06:00)
[2018-08-22 06:38] LABS: HEMATOCRIT 33.7 % (39.0-53.0); HEMOGLOBIN 10.8 g/dL (13.0-17.5); RED BLOOD COUNT 3.41 x10^6/uL (4.30-5.70); RED CELL DISTRIBUTION WIDTH 16.1 % (11.5-14.5); WHITE BLOOD COUNT 12.9 x10^3/uL (4.0-11.0)
[2018-08-22 06:50] LABS: ALBUMIN 2.2 g/dL (3.4-5.0); ALBUMIN/GLOBULIN RATIO 0.6 (1.0-1.7); CALCIUM 8.3 mg/dL (8.5-10.1); GFR 31.6; POTASSIUM 3.3 mmol/L (3.5-5.1); TOTAL BILIRUBIN 0.6 mg/dL (0.2-1.0); TOTAL PROTEIN 6.1 g/dL (6.4-8.2)
[2018-08-22] MEDS ORDERED: ASPIRIN 81 MG TAB.CHEW PO SCH (08:00)
[2018-08-22] MEDS: LACTOBACILLUS RHAMNOSUS GG 1 CAPSULE. PO SCH (08:49)
[2018-08-22] MEDS ORDERED: MULTIVITAMIN with MINERAL TABLET. PO SCH (09:00)
[2018-08-22] MEDS ORDERED: CHOLECALCIFEROL (VITAMIN D3) 1,000 UNIT TABLET PO SCH (09:00)
[2018-08-22] MEDS ORDERED: POLYETHYLENE GLYCOL 3350 17 GM PACKET. PO SCH (09:00)
[2018-08-22] MEDS ORDERED: METOPROLOL SUCC 24HR ER 25 MG TAB.ER.24H. PO SCH (09:00)
[2018-08-22 11:27] VITALS: BP 127/72
--- NOTE | 2018-08-22 14:17 | DS ---
DATE OF DISCHARGE: 08/22/2018 HOSPITAL COURSE: The patient is an 88-year-old male patient, who was originally [facility] on account of being aggressive and hitting others, verbally abusive, yelling, has increasing agitation, all this in a background of dementia with delusion, depression, behavioral disorder. He was admitted to [facility] for inpatient psychiatric stabilization. While there, the patient was not eating or drinking very well and in fact, his BUN and creatinine has steadily increased. He became more lethargic. He has multiple bruises on his upper extremities. His lab work showed his creatinine has risen from 1.5-2.3. BUN from 35-55 and risen to 159 and therefore, the patient was transferred to [address] [place] [id number] for rehydration. I had a lengthy discussion with his son and his , and they opted for hospice care. His said that he has been demented for the last 15 years and she does not want to do anything aggressive and therefore the patient will be discharged back to the facility that he came from to continue on hospice care. PHYSICAL EXAMINATION: GENERAL: When I saw him today, he was resting slightly propped up in bed, continues to be mostly lethargic, pale, but no jaundice, cyanosis, or thyromegaly. No jugular venous distension. No limb edema. VITAL SIGNS: His heart rate was 73, blood pressure was 122/69, temperature was 98.3, respiratory rate was 18 and oxygen saturation was 95% on room air. HEAD, EYES, EARS, NOSE AND THROAT: Normocephalic, atraumatic. NECK: Supple. HEART: Showed normal first and second heart sounds with no gallop, rub or murmur. CHEST: Clear to auscultation. No crepitation or rhonchi. ABDOMEN: Distended, soft, nontender. No guarding or rigidity. No organomegaly. All hernial orifice intact. Bowel sounds normal. NEUROLOGIC: He is very lethargic, but arousable. He does open his eyes, but drifts back to sleep. Cranial nerves are grossly intact. He moves upper extremities to much good extent than lower extremities, mostly bed bound and chair bound. His intake was 2000, no output was recorded. LABORATORY DATA: This morning showed his white cell count was 12,900, hemoglobin 11, hematocrit 33, MCV 99, and platelet count of 176,000. Serum sodium came down to 153, potassium 3.3, chloride 113, bicarbonate 33, anion gap of 7, BUN 51, creatinine 2, estimated GFR was 32 mL per minute. His glucose was 100, calcium was 8.3. Total bilirubin, AST, ALT, alkaline phosphatase were normal. Total protein 6.1, albumin was 2.2. DISCHARGE MEDICATIONS: He was discharged to continue on acetaminophen 650 mg every 4 hours, bisacodyl 10 mg daily, haloperidol lactate 5 mg per 1 mL intramuscular as needed, lorazepam 2 mg per 1 mL, 0.5 mg injectable daily for agitation, olanzapine for Zyprexa Zydis 2.5 mg every 2 hours as needed and quetiapine fumarate 150 mg once a day at bedtime. He was also discharged on Roxanol 20 mg/mL to take 0.25 to 1 mL that is 5 to 20 mg p.o. sublingually every 2 hours as needed for pain or shortness of air. Ativan for Intensol 2 mg per mL to give 0.25 to 1 mL that is 0.5 to 2 mg sublingually orally every 2 hours as needed for anxiety, scopolamine patch 1.5 mg topically q.72 hours. FINAL DISCHARGE DIAGNOSES: 1. Acute on chronic kidney injury. 2. Hypernatremia. 3. Advanced dementia of Alzheimer type. 4. Hypertension. 5. Hyperlipidemia, 6.. Anemia. 7. Chronic constipation. COREY ENGLAND MD DR: [email or web address]/joe JOB#: [id number] / [id number]
[2018-08-28] MEDS ORDERED: cloNIDine TTS-3 1 PATCH PATCH TD SCH (09:00)
== END 2018-08-22 12:40 | disposition hospice, inpatient (51) | DRG 682 ==
LOC: 1 SOUTH 12:12
PROVIDERS: ADMIT Internal Medicine; ATTEND Internal Medicine
DX: N17.9 Acute kidney failure, unspecified (principal); E43 Unspecified severe protein-calorie malnutrition; E87.0 Hyperosmolality and hypernatremia; L03.113 Cellulitis of right upper limb; L03.114 Cellulitis of left upper limb; E78.5 Hyperlipidemia, unspecified; E86.0 Dehydration; F32.9 Major depressive disorder, single episode, unspecified; G30.9 Alzheimer's disease, unspecified; F02.80 Dementia in other diseases classified elsewhere, unspecified severity, without behavioral disturbance, psychotic disturbance, mood disturbance, and anxiety; I12.9 Hypertensive chronic kidney disease with stage 1 through stage 4 chronic kidney disease, or unspecified chronic kidney disease; D64.9 Anemia, unspecified; K59.09 Other constipation; N18.3 Chronic kidney disease, stage 3 (moderate); Z51.5 Encounter for palliative care; Z79.899 Other long term (current) drug therapy
CPT/HCPCS: 36415; 80053; 85027; 87641